=== PATIENT | male | born 1950 | race Asian ===

== ENCOUNTER 2020-04-12 19:04 | Inpatient (IN) | payer MEDICARE, MEDICAID ==
[~2020-04-12] VITALS: Ht 170.2 cm; Wt 55.4 kg
[2020-04-12 19:15] VITALS: BP 150/97
--- NOTE | 2020-04-12 19:15 | NUR ---
ED Nurse Note: Pt moved to Trauma room, endorsed care of pt. Pt BIBA RA 26 from home due to chest pain, on scene pt's BP was 230/110, ASA 324mg was given. Pt is AAOx4, no acute distress noted, Pt is tachycardic 105-108, BP 150/97. Pt's right side is contracted d/t prior CVA.
--- NOTE | 2020-04-12 19:18 | Emergency Room Report ---
History of Present Illness General Chief Complaint: Hypertension Source: Patient Present Illness HPI 69-year-old male with past medical history of hypertension, previous CVA with residual right upper extremity weakness, dyslipidemia, presents by EMS with chief complaint of headache and chest pain. Chest pain was substernal with radiation to the left upper extremity. States he has been compliant with his blood pressure medication at home, however it has not been helping alleviate his extremely high blood pressures. According to EMS, systolic blood pressure prior to arrival was in the 240s. Patient states that the headache he is experiencing is on his frontal forehead and nonradiating. It is similar to previous he has had in the past. Denies thunderclap onset, worst of life, trauma, syncope, vision changes, ataxia. Denies new focal deficit The patient's symptoms were gradual onset, severity was moderate, duration since 1 days. Quality: pressure like Past medical history: Hypertension, CVA with residual right upper extremity weak ness, dyslipidemia Past surgical history: Denies Smoking: Denies Alcohol use: Denies Drug use: Denies Review of systems: CONST: No fevers or chills, No night sweats PULMONARY: No productive cough, No shortness of breath CARDIAC: No chest pain, No palpitations GI: No vomiting, No diarrhea , No melena_or_BRBPR : No dysuria, No hematuria, No discharge NEURO: No new_focal_weakness_or_numbness, No confusion, No vision changes 14 point Review of Systems is otherwise negative except per HPI Physical Exam: GENERAL: Awake_alert_ nontoxic, no acute distress Spo2 98% on RA -normal EYES: Extraocular muscles are intact. Conjunctivae clear. Lids without swelling ENT: External nose and ear normal_in_appearance. Oropharynx clear. Head_atraumatic, Moist_oral_mucosa NECK: No JVD. No meningismus. No thyromegaly. Supple. Trachea midline RESP: Normal respiratory effort. Symmetric rise. No stridor. Clear_to_auscultation_No_rales_No_wheezes CARDIAC: Regular rate and regular rhytm. No_significant pedal edema. ABDOMEN: Soft. Nondistended. Nontender_No_rebound_or_guarding. MSK: Normal muscle tone, without rigidity. Extremities without asymmetric deformity or swelling. SKIN: Warm and dry. No visible cyanosis or pallor NEUROLOGIC: Alert, oriented x3. Motor_and_sensation_grossly_intact except RUE from previous CVA. No truncal ataxia. No slurred speech. Right upper extremity weakness plus 4 out of 5; otherwise strength 5 out of 5 in all other extremities No Nystagmus or abnormal cerebellar signs Psych: Normal mood and affect, normal judgment and insight - COORDINATION OF CARE Case was discussed with: Patient , Patient's Physician Any labs and imaging that were ordered were interpreted as part of the medical decision making: Medical Decision Making/Plan: Differential diagnosis includes acute myocardial infarction, acute coronary syndrome and unstable angina, pulmonary embolism, pneumothorax, pneumonia, and aortic dissection, among others. Patient is currently well appearing with stable vitals. He was administered aspirin 324 prior to arrival as well as nitro spray. New blood pressure is in the 180 systolic. He continues to complain of left-sided chest pain although the intensity has decreased. EKG shows sinus tachycardia with nonspecific ST changes in the inferior leads. LVH. Hyperacute T waves in V2 through V4. No STEMI.. No evidence of STEMI, and initial troponin is negative. Chest xray shows diffuse opacification with possible groundglass opacity versus interstitial edema. No evidence of pneumothorax or significant pleural effusion. Troponin negative x1 Aspirin given. However, given that chest pain is currently resolved, risks likely outweigh benefits of IV heparin at this time, so deferred. The pain is not classic for pericarditis or myocarditis, and the patient has no significant risk factors for a pericardial effusion and has stable vitals signs, unlikely to have tamponade. Pain is not likely to be pulmonary embolism, patient has no significant PE risk factors. The presentation is not consistent with dissection, pain is not severe, radiating to back, or tearing in nature. Has normal bilateral radial and pedal pulses. However given patients presentation and risk factors, patient will be admitted for serial troponins and risk stratification and evaluation for likely stress testing. This patient appears to be a suitable candidate for transfer to telemetry floor at this time with orders from the admitting physician who is aware of the patient's evaluation, ancillary test findings, and current condition, and agrees with treatment and disposition. I spoke with Dr. Alegre from the [facility] group, and reviewed the patients presentation, workup, results, and treatment. They will admit the patient for further care and evaluation, and assume care of the patient at this time. Allergies: Coded Allergies: No Known Allergies (Unverified , 04/12/20) COVID-19 Screening Contact w/high risk pt: No Experienced COVID-19 symptoms?: No COVID-19 Testing performed CONTENT DEVELOPMENT SPECIALIST: No Nursing Documentation-PMH Past Medical History: No History, Except For Hx Cardiac Problems: No - insomnia Hx Hypertension: Yes Hx Cerebrovascular Accident: Yes Physical Exam Vital Signs Date Time Temp Pulse Resp B/P (MAP) Pulse Ox O2 Delivery O2 Flow Rate FiO2 04/12/20 18:56 99.0 112 18 168/103 (124) 94 Room Air Sp02 EP Interpretation: reviewed, normal Medical Decision Making Diagnostic Impression: Primary Impression: Chest pain Additional Impressions: Headache History of CVA (cerebrovascular accident) HTN (hypertension) EKG Diagnostic Results Troponin ordered: Yes When was troponin ordered?: Apr 12, 2020 EKG Time: 19:26 Rate: tachycardiac Rhythm: NSR ST Segments: other - To be changes in the inferior leads ASA given to the pt in ED: Yes - Prior to arrival PA Scribe Text 12-lead EKG (interpreted by me) Time: 1903 Indication: Rhythm analysis Tracing visualized and Interpreted by me. Rhythm: Sinus tachycardia Rate: 104 bpm QTc: 502 Morphology: No_significant_ST_elevations_or_depressions, No STEMI Impression: Sinus tachycardia. LVH. Hyperacute T wave in V2 through V4. Nonspecific inferior lead changes 12-lead EKG (interpreted by me) Time: [id number] Indication: Rhythm analysis Tracing visualized and Interpreted by me. Rhythm: Sinus tachycardia Rate: 104 bpm QTc: 504 Morphology: No_significant_ST_elevations_or_depressions, No STEMI Impression: Sinus tachycardia. LVH. Hyperacute T wave in V2 through V4. Nonspecific inferior lead changes Rhythm Strip Diag. Results Rhythm Strip Time: 19:26 EP Interpretation: yes Rate: 99 Rhythm: NSR, no PVC's, no ectopy Chest X-Ray Diagnostic Results Chest X-Ray Diagnostic Results : PA Scribe Text Chest X-Ray: Views: 1 view(s) Indication: Chest pain Findings: Normal heart size. Mediastinum normal. No infiltrate. Impression: Groundglass opacity versus interstitial edema. Cardiomegaly. Elevated left hemidiaphragm The X-ray(s) were independently viewed and interpreted contemporaneously Electronically signed by me, Janel Bentley, DO Reevaluation Time: 19:27 Last Vital Signs Date Time Temp Pulse Resp B/P (MAP) Pulse Ox O2 Delivery O2 Flow Rate FiO2 04/12/20 18:56 99.0 112 18 168/103 (124) 94 Room Air Status: improved Disposition: ADMITTED INPATIENT Admit Decision Time: 19:27 Condition: Stable Scripts Unable to Obtain Active Prescriptions or Reported Meds Janel Bentley D.O. Apr 12, 2020 19:18
[2020-04-12 19:33] LABS: EOSINOPHILS % (AUTO) 0.5 % (0.0-3.0); HEMATOCRIT 45.2 % (42.0-52.0); HEMOGLOBIN 15.3 G/DL (14.2-18.0); LYMPHOCYTES % (AUTO) 13.9 % (20.0-45.0); MEAN CORPUSCULAR VOLUME 89 FL (80-99); MONOCYTES % (AUTO) 8.8 % (1.0-10.0); NEUTROPHILS % (AUTO) 75.7 % (45.0-75.0); PLATELET COUNT 201 K/UL (150-450); RED BLOOD COUNT 5.07 M/UL (4.70-6.10); RED CELL DISTRIBUTION WIDTH 11.7 % (11.6-14.8); WHITE BLOOD COUNT 11.4 K/UL (4.8-10.8)
--- NOTE | 2020-04-12 19:40 | NUR ---
ED Nurse Note: COVID swab sent to lab
[2020-04-12 19:43] LABS: ANION GAP 11 mmol/L (5-15); BLOOD UREA NITROGEN 19 mg/dL (7-18); CALCIUM 8.5 MG/DL (8.5-10.1); CARBON DIOXIDE 25 MMOL/L (21-32); CHLORIDE 103 MMOL/L (98-107); CREATININE 0.9 MG/DL (0.55-1.30); POTASSIUM 3.5 MMOL/L (3.5-5.1); SODIUM 138 MMOL/L (136-145)
[2020-04-12 19:47] LABS: ALANINE AMINOTRANSFERASE 12 U/L (12-78); ALBUMIN 3.7 G/DL (3.4-5.0); ALBUMIN/GLOBULIN RATIO 1.2 (1.0-2.7); ALKALINE PHOSPHATASE 73 U/L (46-116); ASPARTATE AMINO TRANSFERASE 21 U/L (15-37); BILIRUBIN,TOTAL 0.5 MG/DL (0.2-1.0)
[2020-04-12 19:48] LABS: INR 1.1 (0.9-1.1)
[2020-04-12] MEDS ORDERED: Morphine Sulfate 2mg/ml Inj(IV/IM USE ONLY) IVP PRN (20:00)
--- NOTE | 2020-04-12 20:28 | NUR ---
ED Nurse Note: pt went down to CT via gurney accompanied by CT staff, pt in stable condition.
--- NOTE | 2020-04-12 20:40 | Diagnostic Imaging Report ---
EXAM: CT Head Without Intravenous Contrast CLINICAL HISTORY: H/A TECHNIQUE: Axial computed tomography images of the head/brain without intravenous contrast. CTDI is 53.4 mGy and DLP is 975.1 mGy-cm. One or more of the following dose reduction techniques were used: automated exposure control, adjustment of the mA and/or kV according to patient size, use of iterative reconstruction technique. COMPARISON: No relevant prior studies available. FINDINGS: Brain: Extensive white matter hypoattenuation compatible with chronic ischemic microvascular disease. Chronic appearing lacunar infarcts in the bilateral basal ganglia. No hemorrhage. Ventricles: Unremarkable. No ventriculomegaly. Bones/joints: Unremarkable. No acute fracture. Soft tissues: Unremarkable. Sinuses: Unremarkable as visualized. No acute sinusitis. Mastoid air cells: Unremarkable as visualized. No mastoid effusion. IMPRESSION: Chronic infarcts and white matter changes compatible with chronic ischemic microvascular disease. No acute intracranial process.
[2020-04-12] MEDS ORDERED: Enalaprilat 2.5mg/2ml Inj IV ONE (20:45)
--- NOTE | 2020-04-12 21:01 | NUR ---
ED Nurse Note: report given to JOHN Jay in tele
[2020-04-12 21:08] VITALS: BP 144/82
--- NOTE | 2020-04-12 21:10 | NUR ---
ED Nurse Note: pt transported to Tele floor.
--- NOTE | 2020-04-12 21:15 | NUR ---
NURSE NOTES: Received patient from Angela LOPEZ. Patient was able to ambulate from rne to bed. Yellow gown and special education secretary placed on patient. Vital signs upon arrival as follows: BP 1166/100, Temp 98.2, SPo2 96% HR 111. No c/o Chest pain or dizziness as per patient. Saturating well on Room air. Patient awsnt able to provide much information on history and Medications he take at home but gave his 's number. Will contact and ask for home meds. Bed in lowest position and locked. Call light and bedside table within reach. Will continue plan of care.
--- NOTE | 2020-04-12 21:45 | NUR ---
NURSE NOTES: Dr Laureano called for orders. Verified and carried out. EKG done no rhythm change with ER's EKG. Family called back and gave home medications only amlodipine and triazolam.
[2020-04-12] MEDS ORDERED: Acetaminophen 500mg (ES) tab ORAL PRN (23:15)
[2020-04-12] MEDS ORDERED: HydrALAZINE 25mg tab ORAL PRN (23:15)
[2020-04-13] VITALS (7 sets, daily range): BP systolic 140–175; BP diastolic 86–102
[2020-04-13 05:37] LABS: BASOPHILS % (AUTO) 1.6 % (0.0-2.0); EOSINOPHILS % (AUTO) 0.1 % (0.0-3.0); HEMATOCRIT 45.2 % (42.0-52.0); HEMOGLOBIN 16.2 G/DL (14.2-18.0); LYMPHOCYTES % (AUTO) 8.9 % (20.0-45.0); MEAN CORPUSCULAR VOLUME 83 FL (80-99); MONOCYTES % (AUTO) 6.5 % (1.0-10.0); PLATELET COUNT 205 K/UL (150-450); RED BLOOD COUNT 5.42 M/UL (4.70-6.10); RED CELL DISTRIBUTION WIDTH 10.8 % (11.6-14.8); WHITE BLOOD COUNT 12.7 K/UL (4.8-10.8)
[2020-04-13 05:49] LABS: ANION GAP 10 mmol/L (5-15); BLOOD UREA NITROGEN 13 mg/dL (7-18); CALCIUM 8.1 MG/DL (8.5-10.1); CARBON DIOXIDE 24 MMOL/L (21-32); CHLORIDE 101 MMOL/L (98-107); CREATININE 0.9 MG/DL (0.55-1.30); POTASSIUM 3.3 MMOL/L (3.5-5.1); SODIUM 135 MMOL/L (136-145)
--- NOTE | 2020-04-13 07:23 | NUR ---
NURSE HAND-OFF REPORT: Important Events on Shift:[None] Patient Status: [Stable] Diet: [Regulard] Pending Orders: [] Pending Results/Labs:[] Pending MD notification:[] Latest Vital Signs: Temperature 97.9 , Pulse 109 , B/P 169 /99 , Respiratory Rate 20 , O2 SAT 97 , Room Air, O2 Flow Rate . Vital Sign Comment: [] EKG Rhythm: Sinus Tachycardia Rhythm change?: N MD Notified?: - MD Response: Latest Banks Fall Score: 60 Fall Risk: High Risk Safety Measures: Call light Within Reach, Bed Alarm Zone 1, Side Rails Side Rails x3, Bed position Low and Locked. Fall Precautions: Yellow Socks Yellow Gown Door Sign Patient Fall Education Report given to [Sarah RN].
--- NOTE | 2020-04-13 07:37 | History and Physical ---
History of Present Illness General Date patient seen: Apr 13, 2020 Reason for Hospitalization: chest pain Present Illness HPI 69-year-old [place] male with past medical history of hypertension CVA with residual right-sided weakness and hyperlipidemia presented to the ER by EMS with chief complaint of chest pain and headache. Chest pain is substernal , pressure-like and radiating to the left arm, accompanied by diaphoresis. Patient denies any history of previous IN. He reports compliance with his blood pressure medications at home. He notices that sometimes his blood pressure is very high at home. Per EMS upon their arrival arrival patient systolic blood pressure was in the 240s. Headache is frontal and nonradiating. Denies any vision changes, fall, LOC, or any new focal neurologic deficits. Headache is moderate 6 out of 10 and present for 1 day. Patient denies abdominal pain, nausea, vomiting, diarrhea. Past medical history: Hypertension, CVA with residual right upper extremity weakness, dyslipidemia Past surgical history: Denies Social history: Smoking: Denies Alcohol use: Denies Drug use: Denies History: Denies family history of accelerated heart disease. Allergies: Coded Allergies: No Known Allergies (Unverified , 04/12/20) COVID-19 Screening Contact w/high risk pt: No Recent Travel to affected area: No Experienced COVID-19 symptoms?: No Patient History History Provided By: Patient, Medical Record Healthcare decision maker N Resuscitation status N Advanced Directive on File N Review of Systems Constitutional: Denies: no symptoms, see HPI, chills, sweats, fever, malaise, weakness, other ENT: Reports: see HPI Respiratory: Denies: no symptoms, see HPI, cough, orthopnea, shortness of breath, stridor, wheezing, CABALLERO, sputum, other Cardiovascular: Reports: see HPI, chest pain Gastrointestinal: Denies: no symptoms, see HPI, abdominal pain, constipation, diarrhea, nausea, vomiting, melena, hematemesis, other Genitourinary: Denies: no symptoms, see HPI, discharge, dysuria, frequency, hematuria, pain, retention, incontinence, urgency, vag bleed/dc, other Musculoskeletal: Denies: no symptoms, see HPI, back pain, gout, joint pain, joint swelling, muscle pain, muscle stiffness, other Skin: Denies: no symptoms, see HPI, rash, change in color, change in hair/nails, dryness, lesions, other Psychiatric: Denies: no symptoms, see HPI, prior hx, anxiety, depressed feelings, emotional problems, SI, HI, hallucinations, other Neurological: Reports: see HPI Endocrine: Denies: no symptoms, see HPI, excessive sweating, flushing, intolerance to temperature, increased thirst, increased urine, unexplained weight loss, other Hematologic/Lymphatic: Denies: no symptoms, see HPI, anemia, blood clots, easy bleeding, easy bruising, swollen glands, diathesis, other Physical Exam General Appearance: no apparent distress, alert Lines, tubes and drains: peripheral HEENT: normocephalic, atraumatic, anicteric, mucous membranes moist, PERRL, EOMI Neck: non-tender, normal alignment, supple, normal inspection Respiratory/Chest: chest wall non-tender, lungs clear, normal breath sounds, no respiratory distress, no accessory muscle use Cardiovascular/Chest: normal peripheral pulses, normal rate, regular rhythm, regularly irregular, no gallop/murmur, no JVD Abdomen: normal bowel sounds, non tender, soft, no organomegaly, no mass, abnormal bowel sounds Extremities: normal range of motion, non-tender, normal inspection, no calf tenderness, normal capillary refill, non-pitting, no edema Skin Exam: normal pigmentation Neurologic: chemist internship II-XII grossly normal, oriented x 3, responsive, motor weakness - 3/5 RUE, 4/5 RLE Musculoskeletal: normal muscle bulk Last 24 Hour Vital Signs Date Time Temp Pulse Resp B/P (MAP) Pulse Ox O2 Delivery O2 Flow Rate FiO2 04/13/20 04:00 101 04/13/20 04:00 97.9 109 20 169/99 (122) 97 04/13/20 00:00 111 04/13/20 00:00 97.0 108 20 165/99 (121) 96 04/12/20 22:19 Room Air 04/12/20 21:10 99.0 105 16 144/85 99 Room Air 04/12/20 21:08 144/82 04/12/20 20:49 187/104 04/12/20 19:15 99.0 106 18 150/97 99 Room Air 04/12/20 19:15 106 18 Room Air 04/12/20 18:56 99.0 112 18 168/103 (124) 94 Room Air Intake and Output 04/12/20 04/13/20 19:00 07:00 Intake Total 150 ml Balance 150 ml Intake Oral 100 ml Other 50 ml # Voids 3 Laboratory Tests Test 04/12/20 19:20 04/13/20 05:20 White Blood Count 11.4 K/UL (4.8-10.8) H 12.7 K/UL (4.8-10.8) H Red Blood Count 5.07 M/UL (4.70-6.10) 5.42 M/UL (4.70-6.10) Hemoglobin 15.3 G/DL (14.2-18.0) 16.2 G/DL (14.2-18.0) Hematocrit 45.2 % (42.0-52.0) 45.2 % (42.0-52.0) Mean Corpuscular Volume 89 FL (80-99) 83 FL (80-99) Mean Corpuscular Hemoglobin 30.3 PG (27.0-31.0) 29.8 PG (27.0-31.0) Mean Corpuscular Hemoglobin Concent 33.9 G/DL (32.0-36.0) 35.7 G/DL (32.0-36.0) Red Cell Distribution Width 11.7 % (11.6-14.8) 10.8 % (11.6-14.8) L Platelet Count 201 K/UL (150-450) 205 K/UL (150-450) Mean Platelet Volume 7.1 FL (6.5-10.1) 6.2 FL (6.5-10.1) L Neutrophils (%) (Auto) 75.7 % (45.0-75.0) H 83.0 % (45.0-75.0) H Lymphocytes (%) (Auto) 13.9 % (20.0-45.0) L 8.9 % (20.0-45.0) L Monocytes (%) (Auto) 8.8 % (1.0-10.0) 6.5 % (1.0-10.0) Eosinophils (%) (Auto) 0.5 % (0.0-3.0) 0.1 % (0.0-3.0) Basophils (%) (Auto) 1.0 % (0.0-2.0) 1.6 % (0.0-2.0) Prothrombin Time 11.6 SEC (9.30-11.50) H Prothromb Time International Ratio 1.1 (0.9-1.1) Activated Partial Thromboplast Time 30 SEC (23-33) Sodium Level 138 MMOL/L (136-145) 135 MMOL/L (136-145) L Potassium Level 3.5 MMOL/L (3.5-5.1) 3.3 MMOL/L (3.5-5.1) L Chloride Level 103 MMOL/L (98-107) 101 MMOL/L (98-107) Carbon Dioxide Level 25 MMOL/L (21-32) 24 MMOL/L (21-32) Anion Gap 11 mmol/L (5-15) 10 mmol/L (5-15) Blood Urea Nitrogen 19 mg/dL (7-18) H 13 mg/dL (7-18) Creatinine 0.9 MG/DL (0.55-1.30) 0.9 MG/DL (0.55-1.30) Estimat Glomerular Filtration Rate > 60 mL/min (>60) > 60 mL/min (>60) Glucose Level 110 MG/DL (74-106) H 116 MG/DL (74-106) H Calcium Level 8.5 MG/DL (8.5-10.1) 8.1 MG/DL (8.5-10.1) L Total Bilirubin 0.5 MG/DL (0.2-1.0) Aspartate Amino Transf (AST/SGOT) 21 U/L (15-37) Alanine Aminotransferase (ALT/SGPT) 12 U/L (12-78) Alkaline Phosphatase 73 U/L (46-116) Troponin I 0.019 ng/mL (0.000-0.056) 0.061 ng/mL (0.000-0.056) Total Protein 6.9 G/DL (6.4-8.2) Albumin 3.7 G/DL (3.4-5.0) Globulin 3.2 g/dL Albumin/Globulin Ratio 1.2 (1.0-2.7) Lipase 188 U/L (73-393) Microbiology Date/Time Source Procedure Growth Status 04/12/20 19:34 Nasopharynx SARS-CoV-2 RdRp Gene Assay - Final Complete Height (Feet): 5 Height (Inches): 7.00 Weight (Pounds): 121 Medications Current Medications Medications (Trade) Dose Ordered Sig/Venessa Route PRN Reason Start Time Stop Time Status Last Admin Dose Admin Acetaminophen (Tylenol) 1,000 mg Q8HR PRN ORAL Mild Pain (Pain Scale 1-3) 04/12/20 23:15 05/12/20 23:14 Amlodipine Besylate (Norvasc) 5 mg DAILY ORAL 04/13/20 09:00 05/13/20 08:59 Heparin Sodium (Porcine) (Heparin 5000 units/ml) 5,000 units EVERY 12 HOURS SUBQ 04/13/20 09:00 05/28/20 08:59 Hydralazine HCl (Apresoline) 25 mg Q6HR PRN ORAL SBP >180 04/12/20 23:15 07/11/20 23:14 Assessment/Plan Problem List: (1) Chest pain ICD Codes: R07.9 - Chest pain, unspecified SNOMED: 09004608 (2) HTN (hypertension) ICD Codes: I10 - Essential (primary) hypertension SNOMED: 97755187 (3) History of CVA (cerebrovascular accident) ICD Codes: Z86.73 - Personal history of transient ischemic attack (TIA), and cerebral infarction without residual deficits SNOMED: 699371957 (4) Headache ICD Codes: R51.9 - Headache, unspecified SNOMED: 00036395 Status: stable Assessment/Plan: 69-year-old male with history of hypertension, hyperlipidemia and previous CVA with residual right-sided weakness presented to the hospital with chest pain and headache. #Chest pain rule out ACS #Hypertensive emergency #Hyperlipidemia Place in observation Initiate monitoring BP control. Continue amlodipine. Increase to 10 mg daily Hydralazine as needed for SBP greater than 160 and DBP greater than 100 Continue statin Trend troponin until peaks 2D echocardiogram Cardiology consult #History of CVA with residual right-sided weakness #Headache likely related to hypertensive emergency CT head without any acute abnormality Tylenol as needed Blood pressure control with amlodipine Continue statin #hyperglycemia Check hemoglobin A1c #Hyponatremia #Hypokalemia Replace potassium as needed Monitor BMP I spent 72 minutes on this encounter, 35 minutes spent on counseling and care coordination. Plan of care discussed with RN, patient and consultants. Prem Abraham M.D. Apr 13, 2020 07:37
--- NOTE | 2020-04-13 07:46 | NUR ---
NURSE NOTES: Pt received from Nathaniel LOPEZ. Bed low and locked, sitting up in bed with breakfast tray at bedside. Call light within reach. No complaints of pain or distress
[2020-04-13] MEDS ORDERED: Zolpidem 5mg tab ORAL PRN (08:00)
[2020-04-13] MEDS ORDERED: Heparin 5000 units/ml inj SUBQ SCH (09:00)
--- NOTE | 2020-04-13 09:18 | NUR ---
CASE MANAGEMENT: INITIAL REVIEW 69 YO M BIBA FROM HOME CC: CP AND HIGH BLOOD PRESSURE PMHx: HTN. CVA. SI:CP R/O ACS VS: T 99 HR 112 RR 18 B/P 168/103 SATS 94% ON RA LABS: WBC 11.4 BUN 19 GLU 110 TROPONIN 0.061 IS: EKG Impression:Sinus tachycardia. LVH. Hyperacute Twave in V2 through V4. Nonspecific inferior lead changes CXR: Impression: Groundglass opacity versus interstitial edema. Cardiomegaly. Elevated left hemidiaphragm CT HEAD No acute intracranial process. PATIENT ADMITTED TO TELE 04/12/2020 @ 1932 DCP: HOME PLAN OF CARE: SERIAL TROPONIN 2D ECHO
--- NOTE | 2020-04-13 11:00 | NUR ---
NURSE NOTES: Reassessed BP. Now 167/97. Had an order for additional 5 mg of amlodipine which md had adjusted after i had given 5 this morning. Pt expressed some resistance to taking additional pills after taking 3 large K pills this morning. Used cage clerk phone (ID # [id number] (possibly [phone], she hung up before I could clarify)) to help explain that this is an additional dose of amlodipine to address the high blood pressure that is not going down. Per cage clerk he agrees to take it. Additionally states he feels slightly tired.
--- NOTE | 2020-04-13 12:00 | NUR ---
NURSE NOTES: Used semiconductor bonder phone (ID # [id number]) to explain to pt that his tropnin levels are going up and that the DrKayden has ordered Heparin IV to address this concern. He had no questions and expressed understanding to semiconductor bonder who relayed that to me.
[2020-04-13 12:55] LABS: EOSINOPHILS % (AUTO) 0.1 % (0.0-3.0); HEMATOCRIT 47.7 % (42.0-52.0); HEMOGLOBIN 16.9 G/DL (14.2-18.0); LYMPHOCYTES % (AUTO) 10.2 % (20.0-45.0); MEAN CORPUSCULAR VOLUME 83 FL (80-99); MONOCYTES % (AUTO) 5.2 % (1.0-10.0); NEUTROPHILS % (AUTO) 83.5 % (45.0-75.0); PLATELET COUNT 225 K/UL (150-450); RED BLOOD COUNT 5.72 M/UL (4.70-6.10); RED CELL DISTRIBUTION WIDTH 11.1 % (11.6-14.8); WHITE BLOOD COUNT 12.9 K/UL (4.8-10.8)
--- NOTE | 2020-04-13 13:24 | Cardiac Electrophysiology PN ---
Subjective Subjective [id number] Objective Last 24 Hour Vital Signs Date Time Temp Pulse Resp B/P (MAP) Pulse Ox O2 Delivery O2 Flow Rate FiO2 04/13/20 12:00 98.2 105 18 167/97 (120) 97 04/13/20 12:00 109 04/13/20 11:24 105 167/97 04/13/20 09:00 Room Air 04/13/20 08:43 104 163/102 04/13/20 08:00 98.6 104 20 163/102 (122) 97 04/13/20 08:00 103 04/13/20 04:00 101 04/13/20 04:00 97.9 109 20 169/99 (122) 97 04/13/20 00:00 111 04/13/20 00:00 97.0 108 20 165/99 (121) 96 04/12/20 22:19 Room Air 04/12/20 21:10 99.0 105 16 144/85 99 Room Air 04/12/20 21:08 144/82 04/12/20 20:49 187/104 04/12/20 19:15 99.0 106 18 150/97 99 Room Air 04/12/20 19:15 106 18 Room Air 04/12/20 18:56 99.0 112 18 168/103 (124) 94 Room Air Intake and Output 04/12/20 04/13/20 19:00 07:00 Intake Total 150 ml Balance 150 ml Intake Oral 100 ml Other 50 ml # Voids 3 Laboratory Tests Test 04/12/20 19:20 04/13/20 05:00 04/13/20 05:20 04/13/20 10:00 White Blood Count 11.4 K/UL (4.8-10.8) H 12.7 K/UL (4.8-10.8) H Red Blood Count 5.07 M/UL (4.70-6.10) 5.42 M/UL (4.70-6.10) Hemoglobin 15.3 G/DL (14.2-18.0) 16.2 G/DL (14.2-18.0) Hematocrit 45.2 % (42.0-52.0) 45.2 % (42.0-52.0) Mean Corpuscular Volume 89 FL (80-99) 83 FL (80-99) Mean Corpuscular Hemoglobin 30.3 PG (27.0-31.0) 29.8 PG (27.0-31.0) Mean Corpuscular Hemoglobin Concent 33.9 G/DL (32.0-36.0) 35.7 G/DL (32.0-36.0) Red Cell Distribution Width 11.7 % (11.6-14.8) 10.8 % (11.6-14.8) L Platelet Count 201 K/UL (150-450) 205 K/UL (150-450) Mean Platelet Volume 7.1 FL (6.5-10.1) 6.2 FL (6.5-10.1) L Neutrophils (%) (Auto) 75.7 % (45.0-75.0) H 83.0 % (45.0-75.0) H Lymphocytes (%) (Auto) 13.9 % (20.0-45.0) L 8.9 % (20.0-45.0) L Monocytes (%) (Auto) 8.8 % (1.0-10.0) 6.5 % (1.0-10.0) Eosinophils (%) (Auto) 0.5 % (0.0-3.0) 0.1 % (0.0-3.0) Basophils (%) (Auto) 1.0 % (0.0-2.0) 1.6 % (0.0-2.0) Prothrombin Time 11.6 SEC (9.30-11.50) H Prothromb Time International Ratio 1.1 (0.9-1.1) Activated Partial Thromboplast Time 30 SEC (23-33) Sodium Level 138 MMOL/L (136-145) 135 MMOL/L (136-145) L Potassium Level 3.5 MMOL/L (3.5-5.1) 3.3 MMOL/L (3.5-5.1) L Chloride Level 103 MMOL/L (98-107) 101 MMOL/L (98-107) Carbon Dioxide Level 25 MMOL/L (21-32) 24 MMOL/L (21-32) Anion Gap 11 mmol/L (5-15) 10 mmol/L (5-15) Blood Urea Nitrogen 19 mg/dL (7-18) H 13 mg/dL (7-18) Creatinine 0.9 MG/DL (0.55-1.30) 0.9 MG/DL (0.55-1.30) Estimat Glomerular Filtration Rate > 60 mL/min (>60) > 60 mL/min (>60) Glucose Level 110 MG/DL (74-106) H 116 MG/DL (74-106) H Calcium Level 8.5 MG/DL (8.5-10.1) 8.1 MG/DL (8.5-10.1) L Total Bilirubin 0.5 MG/DL (0.2-1.0) Aspartate Amino Transf (AST/SGOT) 21 U/L (15-37) Alanine Aminotransferase (ALT/SGPT) 12 U/L (12-78) Alkaline Phosphatase 73 U/L (46-116) Troponin I 0.019 ng/mL (0.000-0.056) 0.061 ng/mL (0.000-0.056) 0.132 ng/mL (0.000-0.056) Total Protein 6.9 G/DL (6.4-8.2) Albumin 3.7 G/DL (3.4-5.0) Globulin 3.2 g/dL Albumin/Globulin Ratio 1.2 (1.0-2.7) Lipase 188 U/L (73-393) Hemoglobin A1c 5.3 % (4.3-6.0) Test 04/13/20 12:15 White Blood Count 12.9 K/UL (4.8-10.8) H Red Blood Count 5.72 M/UL (4.70-6.10) Hemoglobin 16.9 G/DL (14.2-18.0) Hematocrit 47.7 % (42.0-52.0) Mean Corpuscular Volume 83 FL (80-99) Mean Corpuscular Hemoglobin 29.5 PG (27.0-31.0) Mean Corpuscular Hemoglobin Concent 35.4 G/DL (32.0-36.0) Red Cell Distribution Width 11.1 % (11.6-14.8) L Platelet Count 225 K/UL (150-450) Mean Platelet Volume 6.6 FL (6.5-10.1) Neutrophils (%) (Auto) 83.5 % (45.0-75.0) H Lymphocytes (%) (Auto) 10.2 % (20.0-45.0) L Monocytes (%) (Auto) 5.2 % (1.0-10.0) Eosinophils (%) (Auto) 0.1 % (0.0-3.0) Basophils (%) (Auto) 1.0 % (0.0-2.0) Activated Partial Thromboplast Time 34 SEC (23-33) H Microbiology Date/Time Source Procedure Growth Status 04/12/20 19:34 Nasopharynx SARS-CoV-2 RdRp Gene Assay - Final Complete Tyler Sanchez MD Apr 13, 2020 13:24
[2020-04-13] MEDS ORDERED: Heparin 5000 units/ml inj IV SCH (13:30)
[2020-04-13] MEDS: Heparin 25,000u/D5W 500ml 500 ML IV SCH (14:01)
--- NOTE | 2020-04-13 15:00 | Consultation ---
DATE OF CONSULTATION: 04/13/2020 CARDIOLOGY CONSULTATION CONSULTING PHYSICIAN: Tyler Sanchez MD. REFERRING PHYSICIAN: Ca Bynum MD. REASON FOR CONSULTATION: Chest pain. HISTORY OF PRESENT ILLNESS: The patient is a 69-year-old Faroese male with history of hypertension, CVA with right-sided weakness, and hyperlipidemia, presented to the emergency room complaining of chest pain and headache. The pain was pressure-like with radiation to the left arm and had diaphoresis as well. The patient denies any prior myocardial infarction, coronary artery disease, or prior stent placement. His blood pressure in the ER was in 240 range and had frontal headache. His EKG was suggestive of inferolateral ischemia. Cardiology consultation was requested for further evaluation as the troponins were also elevated. REVIEW OF SYSTEMS: Negative other than what was mentioned in history of present illness. PAST MEDICAL HISTORY: As mentioned above. FAMILY HISTORY: Noncontributory. SOCIAL HISTORY: He lives at home. Does not smoke or do drugs. PHYSICAL EXAMINATION: VITAL SIGNS: Show blood pressure of 167/97, pulse is 105, respirations 18, and temperature 98.2. HEAD AND NECK: Showed no JVD. LUNGS: Clear. CARDIOVASCULAR: Shows regular S1 and S2 with no gallop or murmur. ABDOMEN: Soft. EXTREMITIES: No pitting edema. LABORATORY AND DIAGNOSTIC DATA: Labs show white count of 13, hemoglobin of 16.9, hematocrit of 47, and platelet count of 225,000. Sodium 135, potassium 3.3, BUN of 13, creatinine 0.9. Troponin initially was negative and then 0.06 and then 0.132. His EKG shows sinus tachycardia with left atrial enlargement and inferolateral T-wave abnormalities suggestive for ischemia. ASSESSMENT AND PLAN: 1. Non-ST elevation myocardial infarction with chest pain, inferolateral ST depression, as well as elevated troponin. The patient currently does not have any chest pain. His echocardiogram showed ejection fraction of 60%. We will continue the patient on heparin drip. I will add aspirin, metoprolol, and statin to his medical regimen. The patient will need cardiac catheterization for further evaluation of his coronaries, I will try to make the transfer arrangement. 2. Accelerated hypertension. The patient is on amlodipine 10 mg daily and p.r.n. hydralazine, and I will add metoprolol 50 mg twice a day to his medical regimen. 3. Hyperlipidemia. 4. 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 Thank you very much, Dr. Abraham, for allowing me to participate in the care of this patient. Please do not hesitate to contact me for any questions regarding my evaluation. Tyler Sanchez M.D. DR: CAS JOB#: [id number] CC:
--- NOTE | 2020-04-13 16:38 | Diagnostic Imaging Report ---
Indication: Chest pain Technique: One view of the chest Comparison: none Findings: There is elevation left hemidiaphragm. There is left basilar atelectasis. Central interstitial prominence is probably on the basis of senescent changes. Impression: No definite acute process
--- NOTE | 2020-04-13 17:04 | NUR ---
*-*DISCHARGE PLANNING*-* CLINICALS FAXED TO: [facility] P: [phone] F: [phone]
--- NOTE | 2020-04-13 17:24 | NUR ---
*-*DISCHARGE PLANNING*-* CLINICALS FAXED TO: [facility] P: [phone] S/W SHA, WILL CALL BACK WITH ROOM#
[2020-04-13] MEDS ORDERED: TRIAZOLAM0.125 MG PO (17:26)
[2020-04-13] MEDS ORDERED: AMLODIPINE BESYL5 MG ORAL (17:26)
[2020-04-13] MEDS ORDERED: THEANINE PO (17:26)
[2020-04-13] MEDS ORDERED: MELATONIN3 MG ORAL (17:26)
[2020-04-13] MEDS ORDERED: BENAZEPRIL HCL40 MG ORAL (17:26)
--- NOTE | 2020-04-13 19:13 | NUR ---
NURSE HAND-OFF REPORT: Important Events on Shift:[pt troponin trending up. last one 0.132. Pt started on heparin. pt will be transferred to [facility] for cardiac cath] Patient Status: [] Diet: [] Pending Orders: [] Pending Results/Labs:[ptt/troponin] Pending MD notification:[] Latest Vital Signs: Temperature 97.8 , Pulse 100 , B/P 155 /92 , Respiratory Rate 18 , O2 SAT 97 , Room Air, O2 Flow Rate . Vital Sign Comment: [bp slowly trending down] EKG Rhythm: Sinus Rhythm Rhythm change?: Y MD Notified?: N - MD Response: Latest Banks Fall Score: 60 Fall Risk: High Risk Safety Measures: Call light Within Reach, Bed Alarm Zone 1, Side Rails Side Rails x2, Bed position Low and Locked. Fall Precautions: Yellow Socks Patient Fall Education Report given to [Nathaniel LOPEZ].
--- NOTE | 2020-04-13 19:27 | NUR ---
NURSE NOTES: Patient received from Ani RN. Patient in stable condition. Alert and oriented x 4. On room air saturating well. IV site patent and intact on Left AC 20G running Heparin Drip @ 12units/kg or 13.2mls/hr. No c/o chest pain or SOB. Bed in lowest position and locked. Call light and bedside table within reach. Will continue plan of care.
--- NOTE | 2020-04-13 20:08 | NUR ---
NURSE NOTES: Pharmacy called for Patient's heparin drip. PTT at therapeutic level 83 continue Heparin drip as ordered at 12units/kg at 13.2mls/hr. Timed PTT order placed at 4am.
[2020-04-13] MEDS: Metoprolol Tartrate 50mg tab ORAL SCH (20:15)
[2020-04-13] MEDS ORDERED: Atorvastatin 80mg tab ORAL SCH (21:00)
--- NOTE | 2020-04-13 21:00 | NUR ---
NURSE NOTES: Tropoin results came back left message for Dr. Bynum and Dr. Sanchez
[2020-04-14 03:52] VITALS: BP 135/82
--- NOTE | 2020-04-14 07:03 | NUR ---
NURSE NOTES: Pt received from Nathaniel LOPEZ. Bed low and locked, sitting up in bed eating breakfast tray at bedside. Call light within reach. No complaints of pain or distress. Heparin drip running at left ac at 13.2 ml/hr.
--- NOTE | 2020-04-14 07:28 | NUR ---
NURSE HAND-OFF REPORT: Important Events on Shift:[Heparin Drip @ 12u/kg] Patient Status: [Stable] Diet: [Regular] Pending Orders: [] Pending Results/Labs:[] Pending MD notification:[] Latest Vital Signs: Temperature 97.5 , Pulse 75 , B/P 135 /82 , Respiratory Rate 20 , O2 SAT 96 , Room Air, O2 Flow Rate . Vital Sign Comment: [] EKG Rhythm: Sinus Rhythm Rhythm change?: N MD Notified?: N - MD Response: Latest Banks Fall Score: 60 Fall Risk: High Risk Safety Measures: Call light Within Reach, Bed Alarm Zone 1, Side Rails Side Rails x2, Bed position Low and Locked. Fall Precautions: Yellow Socks Patient Fall Education Report given to [Sarah RN].
[2020-04-14 08:00] VITALS: BP 144/83
[2020-04-14] MEDS ORDERED: Aspirin EC 81mg tab ORAL SCH (09:00)
--- NOTE | 2020-04-14 09:00 | NUR ---
NURSE NOTES: Used bar manager (ID # [id number]) to let pt know about order to transfer to [facility]. Let him know that we will provide transport. Let him know that I will call again with set up inspector to let him know why he is being transferred.
--- NOTE | 2020-04-14 09:19 | History and Physical ---
History of Present Illness General Date patient seen: Apr 14, 2020 Reason for Hospitalization: Hypertension Present Illness HPI 69-year-old Sinhala male with past medical history of hypertension CVA with residual right-sided weakness and hyperlipidemia presented to the ER by EMS with chief complaint of chest pain and headache. Chest pain is substernal , pressure-like and radiating to the left arm, accompanied by diaphoresis. Patient denies any history of previous MO. He reports compliance with his blood pressure medications at home. He notices that sometimes his blood pressure is very high at home. Per EMS upon their arrival arrival patient systolic blood pressure was in the 240s. Headache is frontal and nonradiating. Denies any vision changes, fall, LOC, or any new focal neurologic deficits. Headache is moderate 6 out of 10 and present for 1 day. Patient denies abdominal pain, nausea, vomiting, diarrhea. Patient was placed on obs to rule out ACS. His troponin was elevated and continues to trend up. His EKG showed inferolateral ST depressions. He was started on Heparin drip, continued ASA and atorvastatin. Started on metoprolol. Echo with EF 60%. Seen in consultation by cardiology. Awaiting transfer to higher level of care ([facility]) for cardiac cath. He was therefore admitted. This morning he is ambulating. He is chest pain free. Allergies: Coded Allergies: No Known Allergies (Unverified , 04/12/20) COVID-19 Screening Contact w/high risk pt: No Recent Travel to affected area: No Experienced COVID-19 symptoms?: No Medication History Scheduled Amlodipine Besylate* (Amlodipine Besylate*), 5 MG ORAL DAILY, (Reported) Benazepril Hcl* (Benazepril Hcl*), 40 MG ORAL DAILY, (Reported) Triazolam* (Halcion*), 0.125 MG PO QHS PRN SLEEP, (Reported) Scheduled PRN Melatonin (Melatonin), 3 MG ORAL BEDTIME PRN for Insomnia, (Reported) [L-Theanine Cap], 1 CAP PO BEDTIME PRN for INSOMNIA, (Reported) Patient History Healthcare decision maker N Resuscitation status Advanced Directive on File Review of Systems Constitutional: Denies: no symptoms, see HPI, chills, sweats, fever, malaise, weakness, other Eye: Denies: no symptoms, see HPI, eye pain, blurred vision, tearing, double vision, nose pain, nose congestion, acuity changes, discharge, other ENT: Denies: no symptoms, see HPI, ear pain, ear discharge, nose pain, nose congestion, throat pain, throat swelling, mouth pain, hearing loss, nasal discharge, other Respiratory: Denies: no symptoms, see HPI, cough, orthopnea, shortness of breath, stridor, wheezing, CABALLERO, sputum, other Cardiovascular: Denies: no symptoms, see HPI, chest pain, edema, palpitations, syncope, PND, other Gastrointestinal: Denies: no symptoms, see HPI, abdominal pain, constipation, diarrhea, nausea, vomiting, melena, hematemesis, other Genitourinary: Denies: no symptoms, see HPI, discharge, dysuria, frequency, hematuria, pain, retention, incontinence, urgency, vag bleed/dc, other Musculoskeletal: Denies: no symptoms, see HPI, back pain, gout, joint pain, joint swelling, muscle pain, muscle stiffness, other Skin: Denies: no symptoms, see HPI, rash, change in color, change in hair /nails, dryness, lesions, other Psychiatric: Denies: no symptoms, see HPI, prior hx, anxiety, depressed fe elings, emotional problems, SI, HI, hallucinations, other Neurological: Reports: focal weakness Endocrine: Denies: no symptoms, see HPI, excessive sweating, flushing, intolerance to temperature, increased thirst, increased urine, unexplained weight loss, other Hematologic/Lymphatic: Denies: no symptoms, see HPI, anemia, blood clots, easy bleeding, easy bruising, swollen glands, diathesis, other Physical Exam Physical Exam Narrative General Appearance: no apparent distress, alert Lines, tubes and drains: peripheral HEENT: normocephalic, atraumatic, anicteric, mucous membranes moist, PERRL, EOMI Neck: non-tender, normal alignment, supple, normal inspection Respiratory/Chest: chest wall non-tender, lungs clear, normal breath sounds, no respiratory distress, no accessory muscle use Cardiovascular/Chest: normal peripheral pulses, normal rate, regular rhythm, regularly irregular, no gallop/murmur, no JVD Abdomen: normal bowel sounds, non tender, soft, no organomegaly, no mass, abnormal bowel sounds Extremities: normal range of motion, non-tender, normal inspection, no calf tenderness, normal capillary refill, non-pitting, no edema Skin Exam: normal pigmentation 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: manager 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 normal, oriented x 3, responsive, motor weakness - 3/5 RUE, 4/5 RLE Musculoskeletal: normal muscle bulk Last 24 Hour Vital Signs Date Time Temp Pulse Resp B/P (MAP) Pulse Ox O2 Delivery O2 Flow Rate FiO2 04/14/20 08:00 86 04/14/20 08:00 96.9 78 20 144/83 (103) 97 04/14/20 04:00 75 04/14/20 03:52 97.5 73 20 135/82 (99) 96 04/14/20 00:00 81 04/13/20 23:55 97.9 82 19 140/86 (104) 97 04/13/20 21:00 Room Air 04/13/20 20:15 102 175/100 04/13/20 20:00 97 04/13/20 20:00 97.7 102 18 175/100 (125) 97 04/13/20 16:00 100 04/13/20 16:00 97.8 106 18 155/92 (113) 97 04/13/20 12:00 98.2 105 18 167/97 (120) 97 04/13/20 12:00 109 04/13/20 11:24 105 167/97 Intake and Output 04/13/20 04/14/20 19:00 07:00 Intake Total 102.8 ml 145.2 ml Output Total 250 ml Balance -147.2 ml 145.2 ml IV Total 52.8 ml 145.2 ml Other 50 ml Output Urine Total 250 ml # Voids 3 4 Laboratory Tests Test 04/13/20 10:00 04/13/20 12:15 04/13/20 19:20 04/14/20 04:00 Troponin I 0.132 ng/mL (0.000-0.056) 0.161 ng/mL (0.000-0.056) White Blood Count 12.9 K/UL (4.8-10.8) H Red Blood Count 5.72 M/UL (4.70-6.10) Hemoglobin 16.9 G/DL (14.2-18.0) Hematocrit 47.7 % (42.0-52.0) Mean Corpuscular Volume 83 FL (80-99) Mean Corpuscular Hemoglobin 29.5 PG (27.0-31.0) Mean Corpuscular Hemoglobin Concent 35.4 G/DL (32.0-36.0) Red Cell Distribution Width 11.1 % (11.6-14.8) L Platelet Count 225 K/UL (150-450) Mean Platelet Volume 6.6 FL (6.5-10.1) Neutrophils (%) (Auto) 83.5 % (45.0-75.0) H Lymphocytes (%) (Auto) 10.2 % (20.0-45.0) L Monocytes (%) (Auto) 5.2 % (1.0-10.0) Eosinophils (%) (Auto) 0.1 % (0.0-3.0) Basophils (%) (Auto) 1.0 % (0.0-2.0) Activated Partial Thromboplast Time 34 SEC (23-33) H 83 SEC (23-33) H 67 SEC (23-33) H Height (Feet): 5 Height (Inches): 7.00 Weight (Pounds): 121 Medications Current Medications Medications (Trade) Dose Ordered Sig/Venessa Route PRN Reason Start Time Stop Time Status Last Admin Dose Admin Acetaminophen (Tylenol) 1,000 mg Q8HR PRN ORAL Mild Pain (Pain Scale 1-3) 04/12/20 23:15 05/12/20 23:14 Amlodipine Besylate (Norvasc) 10 mg DAILY ORAL 04/14/20 09:00 05/14/20 08:59 Aspirin (Ecotrin) 81 mg DAILY ORAL 04/14/20 09:00 05/29/20 08:59 Atorvastatin Calcium (Lipitor) 80 mg BEDTIME ORAL 04/13/20 21:00 07/12/20 20:59 04/13/20 20:15 Heparin Sodium/ Dextrose 500 ml @ 13.2 mls/hr ADJUST PER PROTOCOL IV 04/13/20 13:30 05/13/20 13:29 04/13/20 14:01 Hydralazine HCl (Apresoline) 25 mg Q6HR PRN ORAL SBP >180 04/12/20 23:15 07/11/20 23:14 Metoprolol Tartrate (Lopressor) 50 mg Q12HR ORAL 04/13/20 21:00 07/12/20 20:59 10/16/20 20:15 Zolpidem Tartrate (Ambien) 5 mg HSPRN PRN ORAL Insomnia 04/13/20 08:00 04/20/20 07:59 04/13/20 21:00 Assessment/Plan Problem List: (1) Chest pain ICD Codes: R07.9 - Chest pain, unspecified SNOMED: 40066366 (2) HTN (hypertension) ICD Codes: I10 - Essential (primary) hypertension SNOMED: 55663590 (3) History of CVA (cerebrovascular accident) ICD Codes: Z86.73 - Personal history of transient ischemic attack (TIA), and cerebral infarction without residual deficits SNOMED: 225625823 (4) Headache ICD Codes: R51.9 - Headache, unspecified SNOMED: 12999216 Assessment/Plan: 69-year-old male with history of hypertension, hyperlipidemia and previous CVA with residual right-sided weakness presented to the hospital with chest pain and headache. #chest pain #NSTEMI #Hypertensive emergency #Hyperlipidemia Admit to telemetry Initiate monitoring BP control. Continue amlodipine. Increase to 10 mg daily Hydralazine as needed for SBP greater than 160 and DBP greater than 100 Continue Atorvastatin, ASA, metoprolol Heparin drip Trend troponin until peaks 2D echocardiogram--. EF 60% Cardiology consult appreciated Awaiting tranfer to [facility] for cardiac cath. #History of CVA with residual right-sided weakness #Headache likely related to hypertensive emergency CT head without any acute abnormality Tylenol as needed Blood pressure control with amlodipine Continue statin and ASA #hyperglycemia Check hemoglobin A1c--> 5.3 #Hyponatremia #Hypokalemia Replace potassium as needed Monitor BMP I spent 72 minutes on this encounter, 35 minutes spent on counseling and care coordination. Plan of care discussed with RN, patient and consultants. Prem Abraham M.D. Apr 14, 2020 09:19
[2020-04-14] MEDS: Metoprolol Tartrate 50mg tab ORAL SCH (09:24)
[2020-04-14 10:19] LABS: ANION GAP 7 mmol/L (5-15); BLOOD UREA NITROGEN 29 mg/dL (7-18); CALCIUM 8.8 MG/DL (8.5-10.1); CARBON DIOXIDE 25 MMOL/L (21-32); CHLORIDE 100 MMOL/L (98-107); CREATININE 1.1 MG/DL (0.55-1.30); POTASSIUM 4.1 MMOL/L (3.5-5.1); SODIUM 132 MMOL/L (136-145)
--- NOTE | 2020-04-14 11:52 | NUR ---
*-*DISCHARGE PLANNING*-* CLINICALS FAXED TO: [facility] P: [phone] S/W BRYANT, WILL CALL BACK IF ROOM BECOMES AVAILABLE.
[2020-04-14 11:59] VITALS: BP 137/84
--- NOTE | 2020-04-14 13:24 | NUR ---
*-*DISCHARGE PLANNED*-* PATIENT HAS BEEN ACCEPT [facility] P: [phone] FOR NURSE TO NURSE REPORT ROOM# [id number] [facility] TRANSPORTATION SET FOR 3:30PM/1530 S/W [place] [id number].
[2020-04-14] MEDS: Heparin 25,000u/D5W 500ml 500 ML IV SCH (13:30)
[2020-04-14] MEDS ORDERED: ASPIRIN EC81 MG ORAL (13:36)
[2020-04-14] MEDS ORDERED: METOPROLOL TART50 MG ORAL (13:36)
[2020-04-14] MEDS ORDERED: ACETAMINOPHEN500 MG ORAL (13:36)
[2020-04-14] MEDS ORDERED: NORVASC10 MG ORAL (13:36)
[2020-04-14] MEDS ORDERED: LIPITOR80 MG ORAL (13:36)
--- NOTE | 2020-04-14 13:36 | NUR ---
NURSE NOTES: Notified Dr. Sanchez about troponin trending down and that pt will be moved to [facility] later today.
--- NOTE | 2020-04-14 13:39 | Discharge Summary ---
Discharge Summary Hospital Course Date of Admission Apr 12, 2020 at 19:32 Date of Discharge mar, Admitting Diagnosis CP R/O ACS, HTN EMERGENCY HPI Delmar Summers is a 69 year old male who was admitted on Apr 12, 2020 at 19:32 for Chest Pain Rule Out Acute Coronary Syndrome. Consultations Cardiology: Dr. Machuca Procedures [facility] Course 69-year-old Georgian male with past medical history of hypertension CVA with residual right-sided weakness and hyperlipidemia presented to the ER by EMS with chief complaint of chest pain and headache. Chest pain is substernal , pressure-like and radiating to the left arm, accompanied by diaphoresis. Patient denies any history of previous DE. He reports compliance with his blood pressure medications at home. He notices that sometimes his blood pressure is very high at home. Per EMS upon their arrival arrival patient systolic blood pressure was in the 240s. Headache is frontal and nonradiating. Denies any vision changes, fall, LOC, or any new focal neurologic deficits. Headache is moderate 6 out of 10 and present for 1 day. Patient denies abdominal pain, nausea, vomiting, diarrhea. Patient was placed on obs to rule out ACS. His troponin was elevated and continues to trend up. His EKG showed inferolateral ST depressions. He was started on Heparin drip, continued ASA and atorvastatin. Started on metoprolol. Echo with EF 60%. Seen in consultation by cardiology. Awaiting transfer to higher level of care ([facility]) for cardiac cath. He was therefore admitted. This morning he is ambulating. He is chest pain free. Exam on the day of discharge: General Appearance: no apparent distress, alert Lines, tubes and drains: peripheral HEENT: normocephalic, atraumatic, anicteric, mucous membranes moist, PERRL, EOMI Neck: non-tender, normal alignment, supple, normal inspection Respiratory/Chest: chest wall non-tender, lungs clear, normal breath sounds, no respiratory distress, no accessory muscle use Cardiovascular/Chest: normal peripheral pulses, normal rate, regular rhythm, regularly irregular, no gallop/murmur, no JVD Abdomen: normal bowel sounds, non tender, soft, no organomegaly, no mass, abnormal bowel sounds Extremities: normal range of motion, non-tender, normal inspection, no calf tenderness, normal capillary refill, non-pitting, no edema Skin Exam: normal pigmentation 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, oriented x 3, responsive, motor weakness - 3/5 RUE, 4/5 RLE Musculoskeletal: normal muscle bulk Discharge diagnosis: #chest pain #NSTEMI #Hypertensive emergency #Hyperlipidemia #History of CVA with residual right-sided weakness #[id number]--> 5.3 #Hyponatremia #Hypokalemia Discharge Medications New Medications: Acetaminophen* (Tylenol Extra Strength*) 500 Mg Tablet 1000 MG ORAL Q8HR PRN for 10 Days, TAB Amlodipine Besylate (Norvasc) 10 Mg Tablet 10 MG ORAL DAILY for 10 Days, TAB Aspirin Ec* (Aspirin Ec*) 81 Mg Tablet.dr 81 MG ORAL DAILY for 10 Days, TAB Atorvastatin (Lipitor) 80 Mg Tablet 80 MG ORAL BEDTIME for 10 Days, TAB Metoprolol Tartrate* (Metoprolol Tartrate*) 50 Mg Tablet 50 MG ORAL Q12HR for 10 Days, TAB Continued Medications: Benazepril Hcl* (Benazepril Hcl*) 40 Mg Tablet 40 MG ORAL DAILY for HTN, TAB [L-Theanine Cap] () 1 CAP PO BEDTIME PRN for INSOMNIA Melatonin (Melatonin) 3 Mg Tablet 3 MG ORAL BEDTIME PRN for Insomnia, TAB Triazolam* (Halcion*) 0.125 Mg Tablet 0.125 MG PO QHS PRN SLEEP for INSOMNIA, TAB Discontinued Medications: Amlodipine Besylate* (Amlodipine Besylate*) 5 Mg Tablet 5 MG ORAL DAILY for Hypertension, TAB Discharge Condition Upon Discharge: stable Discharge Vital Signs Last Vital Signs Date Time Temp Pulse Resp B/P (MAP) Pulse Ox O2 Delivery O2 Flow Rate FiO2 04/14/20 12:00 72 04/14/20 11:59 97.9 18 137/84 (101) 98 04/14/20 09:00 Room Air Discharge Disposition Patient was discharged to [facility] Discharge Diagnoses: (1) NSTEMI (non-ST elevated myocardial infarction) (2) Hypertensive emergency (3) History of CVA (cerebrovascular accident) (4) HTN (hypertension) (5) Chest pain (6) Headache Prem Abraham M.D. Apr 14, 2020 13:39
--- NOTE | 2020-04-14 14:00 | NUR ---
NURSE NOTES: Per Dr. Abraham, send pt with heparin drip.
--- NOTE | 2020-04-14 14:51 | NUR ---
NURSE NOTES: Report given to Carla LOPEZ ([phone]) at [facility].
--- NOTE | 2020-04-14 16:00 | NUR ---
NURSE NOTES: Report given to lifeline Gayle LOPEZ here with 3 city planning engineer. Wristband removed. Pt sent on heparin 13.2ml/hr per Dr. Abraham. stable, alert and no complaints of pain. Tele box removed. Discharge paperwork including belongings list signed for. Dr. Sanchez at bedside explained that pt is going to [facility] for Cardiac catheter.
--- NOTE | 2020-04-14 16:19 | Cardiac Electrophysiology PN ---
Assessment/Plan Assessment/Plan 1. Non-ST elevation myocardial infarction with chest pain, inferolateral ST depression, as well as elevated troponin. The patient currently does not have any chest pain. His echocardiogram showed ejection fraction of 60%. We will continue the patient on heparin drip, aspirin, metoprolol, and statin to his medical regimen. The patient will need cardiac catheterization and will be transferred to [facility] today 2. Accelerated hypertension. The patient is on amlodipine 10 mg daily and p.r.n. hydralazine, metoprolol 50 mg twice a day 3. Hyperlipidemia. 4. 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 AZAM RN Subjective Subjective No CP today. Is being transferred to [facility] for cardiac cath Objective Last 24 Hour Vital Signs Date Time Temp Pulse Resp B/P (MAP) Pulse Ox O2 Delivery O2 Flow Rate FiO2 04/14/20 16:00 83 04/14/20 12:00 72 04/14/20 11:59 97.9 70 18 137/84 (101) 98 04/14/20 09:24 86 144/83 04/14/20 09:24 86 144/83 04/14/20 09:00 Room Air 04/14/20 08:00 86 04/14/20 08:00 96.9 78 20 144/83 (103) 97 04/14/20 04:00 75 04/14/20 03:52 97.5 73 20 135/82 (99) 96 04/14/20 00:00 81 04/13/20 23:55 97.9 82 19 140/86 (104) 97 04/13/20 21:00 Room Air 04/13/20 20:15 102 175/100 04/13/20 20:00 97 04/13/20 20:00 97.7 102 18 175/100 (125) 97 Intake and Output 04/13/20 04/14/20 19:00 07:00 Intake Total 102.8 ml 145.2 ml Output Total 250 ml Balance -147.2 ml 145.2 ml IV Total 52.8 ml 145.2 ml Other 50 ml Output Urine Total 250 ml # Voids 3 4 Laboratory Tests Test 04/13/20 19:20 04/14/20 04:00 04/14/20 09:45 Activated Partial Thromboplast Time 83 SEC (23-33) H 67 SEC (23-33) H Troponin I 0.161 ng/mL (0.000-0.056) 0.137 ng/mL (0.000-0.056) Sodium Level 132 MMOL/L (136-145) L Potassium Level 4.1 MMOL/L (3.5-5.1) Chloride Level 100 MMOL/L (98-107) Carbon Dioxide Level 25 MMOL/L (21-32) Anion Gap 7 mmol/L (5-15) Blood Urea Nitrogen 29 mg/dL (7-18) H Creatinine 1.1 MG/DL (0.55-1.30) Estimat Glomerular Filtration Rate > 60 mL/min (>60) Glucose Level 124 MG/DL (74-106) H Calcium Level 8.8 MG/DL (8.5-10.1) Microbiology Date/Time Source Procedure Growth Status 04/12/20 19:34 Nasopharynx SARS-CoV-2 RdRp Gene Assay - Final Complete Objective HEAD AND NECK: Showed no JVD. LUNGS: Clear. CARDIOVASCULAR: Shows regular S1 and S2 with no gallop or murmur. ABDOMEN: Soft. EXTREMITIES: No pitting edema. Tyler Sanchez MD Apr 14, 2020 16:19
--- NOTE | 2020-04-14 20:02 | Cardiology Report ---
APPROVED REPORT EKG Measurement Heart [id number] RI [id number] <Conclusion> Sinus tachycardia Left ventricular hypertrophy with repolarization abnormality Abnormal ECG
--- NOTE | 2020-04-14 20:03 | Cardiology Report ---
APPROVED REPORT EKG Measurement Heart [id number] IN [id number] [id number] <Conclusion> Sinus tachycardia Possible Left atrial enlargement ST & T wave abnormality, consider inferolateral ischemia Abnormal ECG
--- NOTE | 2020-04-14 20:04 | Cardiology Report ---
APPROVED REPORT EKG Measurement Heart [id number] [place] [id number] <Conclusion> Sinus tachycardia Possible Left atrial enlargement Inferior infarct, age undetermined ST & T wave abnormality, consider lateral ischemia Abnormal ECG
--- NOTE | 2020-04-15 08:58 | Cardiology Report ---
APPROVED REPORT EXAM: Two-dimensional and M-mode echocardiogram with Doppler and color Doppler. INDICATION CVA/TIA M-Mode DIMENSIONS IVSd0.9 (0.7-1.1cm)Left Atrium (MM)3.0 (1.6-4.0cm) LVDd4.1 (3.5-5.6cm)Aortic Root3.6 (2.0-3.7cm) PWd0.9 (0.7-1.1cm)Aortic Cusp Exc.1.5 (1.5-2.0cm) IVSs1.9 cmEPSS0.3 (>1.0cm) LVDs2.8 (2.5-4.0cm) PWs1.1 cm Other Information Technically limited study due to cardiac accoustic angle. <Conclusion> Normal left ventricular chamber size, systolic function and wall motion. Left ventricular ejection fraction estimated to be 60 %. Mild left ventricular hypertrophy. Small pericardial effusion along the free wall of RV. Possible large posterior pleural effusion. All other cardiac chamber sizes are within normal limits. Moderate focal aortic valve sclerosis with adequate cusp excursion. Moderately thickened mitral valve leaflets with normal excursion. Mitral annulus and aortic root calcification. Pulmonic valve not well visualized. Normal tricuspid valve structure. IVC at normal size with physiologic collapse. A color flow and spectral Doppler study was performed and revealed: Trace aortic regurgitation. Mild to moderate mitral regurgitation. Mitral diastolic velocities suggest reduced left ventricular relaxation c/w mild LV diastolic dysfunction (Grade I ). Trace tricuspid regurgitation. Tricuspid systolic velocities suggests peak right ventricular systolic pressure of 13 mmHg. Trace pulmonic regurgitation present.
== END 2020-04-14 16:21 | DRG 281 ==
LOC: EDBD 19:04 → EMR 19:26 → 2E 19:32 → EDBEDREQ 20:25
DX: I21.4 Non-ST elevation (NSTEMI) myocardial infarction (principal); I16.1 Hypertensive emergency; E87.1 Hypo-osmolality and hyponatremia; I69.351 Hemiplegia and hemiparesis following cerebral infarction affecting right dominant side; E87.6 Hypokalemia; R73.9 Hyperglycemia, unspecified
CPT/HCPCS: 36415; 70450; 71045; 80048; 80053; 83036; 83690; 84484; 85025; 85610; 85730; 93005; 93306; 96374; 99285; J8499; U0002

== ENCOUNTER 2020-05-12 14:52 | Emergency (ER) | payer MEDICARE, OTHER ==
[~2020-05-12] VITALS: Ht 157.5 cm; Wt 72.6 kg
[~2020-05-12 14:52] MED LIST: ACETAMINOPHEN500 MG ORAL; AMLODIPINE BESYL5 MG ORAL; ASPIRIN EC81 MG ORAL; BENAZEPRIL HCL40 MG ORAL; LIPITOR80 MG ORAL; MELATONIN3 MG ORAL; METOPROLOL TART50 MG ORAL; NORVASC10 MG ORAL; THEANINE PO; TRIAZOLAM0.125 MG PO
--- NOTE | 2020-05-12 15:15 | NUR ---
ED Nurse Note: Pt walked in from DNP office c/o urinary retention x 5 days. Pt reports blood in urine yesterday. Pt is AOx4, calm and cooperative to care, VSS, on RA, afebrile on triage. Pt was placed on bed, ERMD at bedside.
--- NOTE | 2020-05-12 15:23 | Emergency Room Report ---
History of Present Illness General Chief Complaint: Male Urogenital Problems Source: Patient Present Illness HPI Disclaimer: Please note that this report is being documented using [employer] technology. This can lead to erroneous entry secondary to incorrect interpretation by the dictating instrument. HPI: 69-year-old male history of hypertension, hyperlipidemia, CVA with residual right sided weakness and dysarthria presents for evaluation of urinary retention. Patient states he has had intermittent episodes of urinary retention, mostly during the day, and urinary incontinence at night. Over the past 2 days he has had intermittent hematuria. He denies abdominal pain, dysuria, penile discharge, flank pain, fever, chills, nausea, vomiting, diarrhea or other symptoms. No prior history of urinary retention. Denies history of BPH. Takes no medications for BPH. Does not take blood thinners. No trauma reported. Denies testicular pain or swelling. 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 EOMI. Cardiovascular: RRR. S1 and S2 normal. No murmur appreciated Resp: Normal work of breathing. No cough, wheezing or crackles appreciated Abdomen: Abdomen is soft, nondistended. Nontender, no masses Rectal: Firm stool in rectal vault. No melena, and no bright blood. Prostate is firm, enlarged, somewhat nodular. No tenderness, no fluctuance Skin: Intact. No abrasions, laceration or rash over the exposed skin MSK: Normal tone and bulk. Moving all extremities. No obvious deformity. Right fist held in contracture. Neuro: Awake and alert. Mentating appropriately. Medical Decision Making Diagnostic Impression: Primary Impression: UTI (urinary tract infection) Additional Impressions: Urinary retention Microscopic hematuria ER Course 69-year-old male presents for evaluation of intermittent urinary retention of the past week with hematuria. Differential includes was not limited to BPH, obstruction, blood clot, cystitis, renal failure among others. Prostate is firm, enlarged and nontender. Patient was able to void 200 cc clear/yellow urine without blood on arrival. A postvoid residual residual bedside ultrasound was performed showing 55 cc retained. Patient's belly exam is benign. He is neurologically intact and is ambulatory without difficulty. Patient will be started on Flomax. Urinalysis shows 1+ leukocyte esterase and WBCs along with red cells. Questionable UTI but until culture results will start on Keflex. Patient can follow-up for hematuria with urology through his PPO. I discussed the findings and treatment plan with his son Pancho by telephone. He will help coordinate his care. Patient is stable and appropriate for outpatient follow- up. Laboratory Tests Test 05/12/20 15:35 White Blood Count 9.4 K/UL (4.8-10.8) Red Blood Count 4.90 M/UL (4.70-6.10) Hemoglobin 15.0 G/DL (14.2-18.0) Hematocrit 43.8 % (42.0-52.0) Mean Corpuscular Volume 89 FL (80-99) Mean Corpuscular Hemoglobin 30.7 PG (27.0-31.0) Mean Corpuscular Hemoglobin Concent 34.3 G/DL (32.0-36.0) Red Cell Distribution Width 12.0 % (11.6-14.8) Platelet Count 194 K/UL (150-450) Mean Platelet Volume 7.4 FL (6.5-10.1) Neutrophils (%) (Auto) 69.2 % (45.0-75.0) Lymphocytes (%) (Auto) 18.8 % (20.0-45.0) L Monocytes (%) (Auto) 9.8 % (1.0-10.0) Eosinophils (%) (Auto) 0.9 % (0.0-3.0) Basophils (%) (Auto) 1.3 % (0.0-2.0) Prothrombin Time 11.4 SEC (9.30-11.50) Prothrombin Time INR 1.0 (0.9-1.1) Activated Partial Thromboplast Time 31 SEC (23-33) Urine Color Pale yellow Urine Appearance Clear Urine pH 6 (4.5-8.0) Urine Specific [place] 1.030 (1.005-1.035) Urine Protein Negative (NEGATIVE) Urine Glucose (UA) Negative (NEGATIVE) Urine Ketones Negative (NEGATIVE) Urine Blood 5+ (NEGATIVE) H Urine Nitrite Negative (NEGATIVE) Urine Bilirubin Negative (NEGATIVE) Urine Urobilinogen Normal MG/DL (0.0-1.0) Urine Leukocyte Esterase 1+ (NEGATIVE) H Urine RBC 30-40 /HPF (0 - 0) H Urine WBC 5-10 /HPF (0 - 0) H Urine Squamous Epithelial Cells Few /LPF (NONE/OCC) Urine Bacteria Few /HPF (NONE) Sodium Level 136 MMOL/L (136-145) Potassium Level 4.2 MMOL/L (3.5-5.1) Chloride Level 102 MMOL/L (98-107) Carbon Dioxide Level 28 MMOL/L (21-32) Anion Gap 6 mmol/L (5-15) Blood Urea Nitrogen 16 mg/dL (7-18) Creatinine 1.1 MG/DL (0.55-1.30) Estimated Glomerular Filtration Rate > 60 mL/min (>60) Glucose Level 93 MG/DL (74-106) Calcium Level 8.8 MG/DL (8.5-10.1) Last Vital Signs Date Time Temp Pulse Resp B/P (MAP) Pulse Ox O2 Delivery O2 Flow Rate FiO2 05/12/20 14:55 98.6 103 22 166/99 (121) 95 Room Air Disposition: HOME, SELF-CARE Condition: Stable Scripts Cephalexin* (KEFLEX*) 500 Mg Capsule 500 MG ORAL EVERY 12 HOURS for 7 Days, #14 CAP 0 Refills Prov: David Jorgensen MD 05/12/20 Tamsulosin HCl (Flomax) 0.4 Mg Cap.er.24h 0.4 MG ORAL DAILY for BPH for 30 Days, #30 CAP Prov: David Jorgensen MD 05/12/20 David Jorgensen MD May 12, 2020 15:23
[2020-05-12 15:47] VITALS: BP 166/99
[2020-05-12 16:05] LABS: APPEARANCE,URINE CLEAR; BILIRUBIN, URINE NEGATIVE (NEGATIVE); COLOR,URINE PALE YELLOW; GLUCOSE, URINE (UA) NEGATIVE (NEGATIVE); KETONES,URINE NEGATIVE (NEGATIVE); LEUKOCYTE ESTERASE ,URINE 1+ (NEGATIVE); NITRITE,URINE NEGATIVE (NEGATIVE); PH,URINE 6 (4.5-8.0); PROTEIN,URINE NEGATIVE (NEGATIVE); UROBILINOGEN,URINE NORMAL MG/DL (0.0-1.0)
[2020-05-12 16:08] LABS: ANION GAP 6 mmol/L (5-15); BLOOD UREA NITROGEN 16 mg/dL (7-18); CALCIUM 8.8 MG/DL (8.5-10.1); CARBON DIOXIDE 28 MMOL/L (21-32); CHLORIDE 102 MMOL/L (98-107); CREATININE 1.1 MG/DL (0.55-1.30); POTASSIUM 4.2 MMOL/L (3.5-5.1); SODIUM 136 MMOL/L (136-145)
[2020-05-12 16:12] LABS: BASOPHILS % (AUTO) 1.3 % (0.0-2.0); EOSINOPHILS % (AUTO) 0.9 % (0.0-3.0); HEMATOCRIT 43.8 % (42.0-52.0); LYMPHOCYTES % (AUTO) 18.8 % (20.0-45.0); MEAN CORPUSCULAR VOLUME 89 FL (80-99); MONOCYTES % (AUTO) 9.8 % (1.0-10.0); NEUTROPHILS % (AUTO) 69.2 % (45.0-75.0); PLATELET COUNT 194 K/UL (150-450); WHITE BLOOD COUNT 9.4 K/UL (4.8-10.8)
[2020-05-12] MEDS ORDERED: CEPHALEXIN500 MG ORAL (16:30)
[2020-05-12] MEDS ORDERED: FLOMAX0.4 MG ORAL (16:30)
[2020-05-12 17:26] VITALS: BP 150/80
--- NOTE | 2020-05-12 17:31 | NUR ---
discharged home with instruction and rx follow up with pmd written instruction given to patient and verbal given to son. home by rigo
== END 2020-05-12 17:33 | disposition home or self-care (01) ==
LOC: EMR 15:27
DX: N39.0 Urinary tract infection, site not specified (principal); R33.9 Retention of urine, unspecified; R31.29 Other microscopic hematuria; I10 Essential (primary) hypertension; Z86.73 Personal history of transient ischemic attack (TIA), and cerebral infarction without residual deficits
CPT/HCPCS: 36415; 80048; 81003; 85025; 85610; 85730; 99284

== ENCOUNTER 2020-05-14 12:15 | Inpatient (IN) | payer MEDICARE, MEDICAID ==
[~2020-05-14] VITALS: Ht 160 cm; Wt 55.3 kg
[~2020-05-14 12:15] MED LIST changes: +CEPHALEXIN500 MG ORAL; +FLOMAX0.4 MG ORAL
--- NOTE | 2020-05-14 12:17 | NUR ---
ED Nurse Note: Patient c/o pain in the left chest, pointing the area. ERMD notified.
--- NOTE | 2020-05-14 12:30 | NUR ---
ED Nurse Note: Patient was brought in by ambulance from home due to generalized weakness; patient dx with UTI and currently taking antibiotics. Patient presented weak, AAO x4, VSS at this time.
--- NOTE | 2020-05-14 12:55 | NUR ---
ED Nurse Note: IV line was established on left AC 18ga, blood collected sent to lab
--- NOTE | 2020-05-14 13:03 | Emergency Room Report ---
History of Present Illness General Chief Complaint: Chest Pain Source: Patient Present Illness HPI 69-year-old male presents to the emergency department 8 out of 10 severity left- sided chest pain with generalized weakness x2 days. Patient with history of ACS in the past, CVA with right-sided residual deficit as well as high blood pressure and hyperlipidemia. Patient denies fevers or chills. He denies nausea or vomiting. Patient reports taking antibiotics recently for UTI. He denies abdominal pain, dysuria, hematuria or urinary frequency. Patient reports last time he urinated was last night. He denies back pain. He denies dizziness. Patient denies headache, neck pain or stiffness. Patient denies constipation or diarrhea. He denies blood in the stool or dark tarry stools. Patient describes his chest pain is constant in nature he states it does not change with respirations. He denies shortness of breath or coughing. He states he has not taken any medications at home for his chest pain such as aspirin or nitroglycerin. Patient states he has taken all other prescribed medications. Denies any new onset localized paresthesias or loss of gross motor function. He denies any aggravating or relieving factors. 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: No Patient History Past Medical History: see triage record Past Surgical History: none Pertinent Family History: none Reviewed Nursing Documentation: PMH: Agreed; PSxH: Agreed Nursing Documentation-PMH Past Medical History: No History, Except For Hx Cardiac Problems: No - insomnia Hx Hypertension: Yes Hx Cerebrovascular Accident: Yes - right sided weakness Review of Systems All Other Systems: negative except mentioned in HPI Physical Exam Vital Signs Date Time Temp Pulse Resp B/P (MAP) Pulse Ox O2 Delivery O2 Flow Rate FiO2 05/14/20 12:16 98.4 120 16 198/117 (144) 99 Room Air Sp02 EP Interpretation: reviewed, normal General Appearance: alert, GCS 15, non-toxic, mild distress, Chronically Ill - Right sided deficit UE and LE. Head: normocephalic, atraumatic Eyes: bilateral eye normal inspection, bilateral eye PERRL ENT: hearing grossly normal, normal voice Neck: full range of motion Respiratory: chest non-tender, lungs clear, no accessory muscle use, no wheezing, speaking full sentences, other Cardiovascular #1: regular rate, rhythm, no edema, systolic murmur - 3+--- holosystolic Gastrointestinal: normal bowel sounds, non tender, soft, non-distended, no guarding Genitourinary: normal inspection, no CVA tenderness Musculoskeletal: normal range of motion, non-tender Neurologic: alert, oriented x3, sensory intact, responsive, speech normal - 3-4 word sentences,, other - RIght sided UE and LE motor deficit. Right hand contracture and visible muscle atrophy in both UE and LE. Pt. wears right ankle brace. Psychiatric: judgement/insight normal Skin: no rash, normal color Medical Decision Making PA Attestation Dr. Mukherjee Is my supervising Physician whom patient management has been discussed with. Diagnostic Impression: Primary Impression: ACS (acute coronary syndrome) ER Course Pt. presents to the ED c/o CP and marked generalized weakness. Ddx considered but are not limited to ME, pneumonia, contusion, costochondritis, PE, ACS, NSTEMI, Shoulder strain, Chest wall contusion. Urosepsis, aortic dissection. Vital signs: pt. is afebrile. He is tachycardic on arrival and placed into a monitored bed. H&PE are most consistent with elderly male with complicated PmHx. presenting with CP, abnormal EKG demonstrating increased cardiac work and possible ischemia requiring laboratory work up and admission to the hospital for serial troponin testing and cardiology evaluation. Pt. was recently placed on antibiotics for UTI, and urosepsis is of high consideration as well. Pt. speaks 3-4 word sentences, and has reduced knowledge regarding his full medical history. ORDERS: - EKG: Sinus tachycardia at a rate of [address] abnormalities and evidence of left ventricular hypertrophy in the presence of having chest pain. Patient was given 325 mg aspirin orally -CBC: WNL -CMP: Pending at time of admission -UA: WNL -Lactic Acid: pending at time of admission -Troponin: 0.9 Elevated CXR: WNL ED INTERVENTIONS: - PT. placed on cardiac monitoring. -Pt. given 325mg ASA PO DISPOSITION: at this time pt. will be admitted to Dr. Bynum for ACS . Dr. Bynum agreed to admit the pt. and to continue pt. care management. Laboratory Tests Test 05/16/20 06:25 White Blood Count 9.4 K/UL (4.8-10.8) Red Blood Count 4.70 M/UL (4.70-6.10) Hemoglobin 14.5 G/DL (14.2-18.0) Hematocrit 43.6 % (42.0-52.0) Mean Corpuscular Volume 93 FL (80-99) Mean Corpuscular Hemoglobin 30.9 PG (27.0-31.0) Mean Corpuscular Hemoglobin Concent 33.2 G/DL (32.0-36.0) Red Cell Distribution Width 11.9 % (11.6-14.8) Platelet Count 188 K/UL (150-450) Mean Platelet Volume 7.3 FL (6.5-10.1) Neutrophils (%) (Auto) 72.2 % (45.0-75.0) Lymphocytes (%) (Auto) 17.3 % (20.0-45.0) L Monocytes (%) (Auto) 8.5 % (1.0-10.0) Eosinophils (%) (Auto) 1.3 % (0.0-3.0) Basophils (%) (Auto) 0.6 % (0.0-2.0) Sodium Level 138 MMOL/L (136-145) Potassium Level 4.0 MMOL/L (3.5-5.1) Chloride Level 106 MMOL/L (98-107) Carbon Dioxide Level 24 MMOL/L (21-32) Anion Gap 8 mmol/L (5-15) Blood Urea Nitrogen 15 mg/dL (7-18) Creatinine 1.0 MG/DL (0.55-1.30) Estimated Glomerular Filtration Rate > 60 mL/min (>60) Glucose Level 104 MG/DL (74-106) Calcium Level 8.1 MG/DL (8.5-10.1) L Magnesium Level 2.2 MG/DL (1.8-2.4) EKG Diagnostic Results Troponin ordered: Yes When was troponin ordered?: May 14, 2020 EKG Time: 12:27 Rate: tachycardiac - 121 Rhythm: NSR Other Impression Inverted T-wave in V-6 & V1,, Left vent. Hypertrophy ASA given to the pt in ED: Yes PA Scribe Text This Interpretation was scribed by PAM Poon. Chest X-Ray Diagnostic Results Chest X-Ray Diagnostic Results : Chest X-Ray Ordered: Yes # of Views/Limited/Complete: 1 View Indication: Chest Pain EP Interpretation: Yes PAM Xray: Interpretation reviewed, by supervising MD, and agrees with zaria cardoso. Interpretation: no consolidation, no effusion, no pneumothorax, no acute cardiopulmonary disease Impression: No acute disease Electronically Signed by: Phuong Poon PA-C Last Vital Signs Date Time Temp Pulse Resp B/P (MAP) Pulse Ox O2 Delivery O2 Flow Rate FiO2 05/14/20 12:16 98.4 120 16 198/117 (144) 99 Room Air Disposition: ADMITTED INPATIENT Condition: Serious Scripts Finasteride (FINASTERIDE) 5 Mg Tablet 5 MG ORAL DAILY for 30 Days, #30 TAB Prov: Prasanna Aguilar D.O 05/16/20 Doxycycline Monohydrate* (DOXYCYCLINE MONOHYDRATE*) 100 Mg Capsule 100 MG ORAL EVERY 12 HOURS for 30 Days, #30 CAP Prov: Prasanna Aguilar D.O 05/16/20 Phuong Poon May 14, 2020 13:03
[2020-05-14 13:53] LABS: BASOPHILS % (AUTO) 0.6 % (0.0-2.0); EOSINOPHILS % (AUTO) 0.8 % (0.0-3.0); HEMATOCRIT 46.2 % (42.0-52.0); HEMOGLOBIN 14.9 G/DL (14.2-18.0); MEAN CORPUSCULAR VOLUME 93 FL (80-99); MONOCYTES % (AUTO) 10.3 % (1.0-10.0); NEUTROPHILS % (AUTO) 77.3 % (45.0-75.0); PLATELET COUNT 186 K/UL (150-450); RED BLOOD COUNT 4.97 M/UL (4.70-6.10); RED CELL DISTRIBUTION WIDTH 12.3 % (11.6-14.8); WHITE BLOOD COUNT 9.1 K/UL (4.8-10.8)
[2020-05-14 14:08] VITALS: BP 198/117
[2020-05-14 14:11] LABS: ANION GAP 6 mmol/L (5-15); BLOOD UREA NITROGEN 17 mg/dL (7-18); CALCIUM 8.7 MG/DL (8.5-10.1); CARBON DIOXIDE 30 MMOL/L (21-32); CHLORIDE 103 MMOL/L (98-107); CREATININE 1.1 MG/DL (0.55-1.30); POTASSIUM 3.9 MMOL/L (3.5-5.1); SODIUM 138 MMOL/L (136-145)
[2020-05-14 14:19] LABS: CREATINE KINASE 102 U/L (26-308)
[2020-05-14 14:26] LABS: ALANINE AMINOTRANSFERASE 17 U/L (12-78); ALBUMIN 3.7 G/DL (3.4-5.0); ALBUMIN/GLOBULIN RATIO 0.9 (1.0-2.7); ALKALINE PHOSPHATASE 66 U/L (46-116); ASPARTATE AMINO TRANSFERASE 18 U/L (15-37); BILIRUBIN,TOTAL 0.4 MG/DL (0.2-1.0)
--- NOTE | 2020-05-14 15:04 | NUR ---
ED Nurse Note: urine collected sent to lab
--- NOTE | 2020-05-14 15:13 | Diagnostic Imaging Report ---
Indication: Reason For Exam: PAIN Technique: Single AP view of the chest. Comparison: Chest radiograph dated 04/12/2020 Findings: The cardiomediastinal silhouette is unchanged in appearance. Left hemidiaphragm is again noted to be elevated with associated volume loss and left basilar atelectasis. No new airspace consolidation. No pneumothorax or pleural effusion. No acute osseous abnormality. There is a rounded density projecting over the right lung base. IMPRESSION: 1. No radiographic evidence of acute cardiopulmonary process. 2. Rounded density projecting over the right lung base which could correspond to nipple shadow or EKG leads sticker, though pulmonary nodule is not excluded.
[2020-05-14 15:38] LABS: APPEARANCE,URINE CLEAR; BILIRUBIN, URINE NEGATIVE (NEGATIVE); COLOR,URINE PALE YELLOW; GLUCOSE, URINE (UA) NEGATIVE (NEGATIVE); KETONES,URINE NEGATIVE (NEGATIVE); LEUKOCYTE ESTERASE ,URINE NEGATIVE (NEGATIVE); NITRITE,URINE NEGATIVE (NEGATIVE); PH,URINE 8 (4.5-8.0); PROTEIN,URINE NEGATIVE (NEGATIVE); UROBILINOGEN,URINE NORMAL MG/DL (0.0-1.0)
--- NOTE | 2020-05-14 16:02 | History and Physical ---
History of Present Illness General Date patient seen: May 14, 2020 Reason for Hospitalization: Chest Pain Present Illness HPI 69-year-old Gabonese male with past medical history of multivessel CAD, NSTEMI, hypertension, CVA with residual right-sided weakness and hyperlipidemia, presents to the ER chest pain. Started this afternoon at home without much exertion, pressure like pain in left side of chest associated with SOB, no nausea or diaphoresis. He reports taking antihypertensive meds at home but cannot recall their names. He does not take ASA. He does take Lipitor. Currently feels chest pain and SOB are better compared to when he arrived. Previous recent admission for chest pain and NSTEMI, transferred to [facility] for cath that showed severe 3-vessel CAD for which CABG was recommended but patient refused, so medically managed. Past medical history: Hypertension, CVA with residual right upper extremity weak ness, dyslipidemia Past surgical history: Denies surgical history Social history: Smoking: Former smoker, used to smoke 2 PPD for many years, quit 10/2019 Alcohol use: Denies Drug use: Denies History: Denies family history of HTN or heart disease, though patient is unsure of family history Allergies: Coded Allergies: No Known Allergies (Unverified , 04/12/20) COVID-19 Screening Contact w/high risk pt: No Recent Travel to affected area: No Experienced COVID-19 symptoms?: No Medication History Scheduled Amlodipine Besylate (Norvasc), 10 MG ORAL DAILY Aspirin Ec* (Aspirin Ec*), 81 MG ORAL DAILY Atorvastatin (Lipitor), 80 MG ORAL BEDTIME Benazepril Hcl* (Benazepril Hcl*), 40 MG ORAL DAILY, (Reported) Cephalexin* (Keflex*), 500 MG ORAL EVERY 12 HOURS Metoprolol Tartrate* (Metoprolol Tartrate*), 50 MG ORAL Q12HR Tamsulosin HCl (Flomax), 0.4 MG ORAL DAILY Triazolam* (Halcion*), 0.125 MG PO QHS PRN SLEEP, (Reported) Scheduled PRN Acetaminophen* (Tylenol Extra Strength*), 1,000 MG ORAL Q8HR PRN Melatonin (Melatonin), 3 MG ORAL BEDTIME PRN for Insomnia, (Reported) [L-Theanine Cap], 1 CAP PO BEDTIME PRN for INSOMNIA, (Reported) Patient History Healthcare decision maker Resuscitation status Advanced Directive on File Review of Systems Constitutional: Denies: chills, sweats, fever Eye: Denies: eye pain, nose pain ENT: Denies: ear pain, throat pain Respiratory: Denies: cough, orthopnea Cardiovascular: Denies: syncope Gastrointestinal: Denies: abdominal pain, constipation, diarrhea Genitourinary: Denies: dysuria, hematuria Musculoskeletal: Denies: joint pain, joint swelling Skin: Denies: rash, dryness Psychiatric: Denies: anxiety, hallucinations Neurological: Denies: numbness, paresthesia, focal weakness Endocrine: Denies: intolerance to temperature, unexplained weight loss Hematologic/Lymphatic: Denies: easy bleeding, easy bruising Physical Exam General Appearance: WD/WN, no apparent distress, alert HEENT: normocephalic, atraumatic, anicteric, PERRL, EOMI Neck: non-tender, supple, normal inspection Respiratory/Chest: chest wall non-tender, lungs clear, normal breath sounds, no respiratory distress, no accessory muscle use Cardiovascular/Chest: normal rate, regular rhythm, no gallop/murmur Abdomen: normal bowel sounds, non tender, soft, no organomegaly Extremities: normal range of motion, non-tender, normal inspection, no calf tenderness Skin Exam: normal pigmentation, warm/dry Neurologic: cementer helper II-XII grossly normal, alert, oriented x 3, normal mood/affect Last 24 Hour Vital Signs Date Time Temp Pulse Resp B/P (MAP) Pulse Ox O2 Delivery O2 Flow Rate FiO2 05/14/20 14:08 120 16 Room Air 05/14/20 14:08 98.4 16 198/117 99 Room Air 05/14/20 12:16 98.4 120 16 198/117 (144) 99 Room Air Laboratory Tests Test 05/14/20 13:30 05/14/20 15:03 White Blood Count 9.1 K/UL (4.8-10.8) Red Blood Count 4.97 M/UL (4.70-6.10) Hemoglobin 14.9 G/DL (14.2-18.0) Hematocrit 46.2 % (42.0-52.0) Mean Corpuscular Volume 93 FL (80-99) Mean Corpuscular Hemoglobin 30.0 PG (27.0-31.0) Mean Corpuscular Hemoglobin Concent 32.3 G/DL (32.0-36.0) Red Cell Distribution Width 12.3 % (11.6-14.8) Platelet Count 186 K/UL (150-450) Mean Platelet Volume 7.3 FL (6.5-10.1) Neutrophils (%) (Auto) 77.3 % (45.0-75.0) H Lymphocytes (%) (Auto) 11.0 % (20.0-45.0) L Monocytes (%) (Auto) 10.3 % (1.0-10.0) H Eosinophils (%) (Auto) 0.8 % (0.0-3.0) Basophils (%) (Auto) 0.6 % (0.0-2.0) Sodium Level 138 MMOL/L (136-145) Potassium Level 3.9 MMOL/L (3.5-5.1) Chloride Level 103 MMOL/L (98-107) Carbon Dioxide Level 30 MMOL/L (21-32) Anion Gap 6 mmol/L (5-15) Blood Urea Nitrogen 17 mg/dL (7-18) Creatinine 1.1 MG/DL (0.55-1.30) Estimat Glomerular Filtration Rate > 60 mL/min (>60) Glucose Level 119 MG/DL (74-106) H Lactic Acid Level 1.30 mmol/L (0.4-2.0) Calcium Level 8.7 MG/DL (8.5-10.1) Total Bilirubin 0.4 MG/DL (0.2-1.0) Aspartate Amino Transf (AST/SGOT) 18 U/L (15-37) Alanine Aminotransferase (ALT/SGPT) 17 U/L (12-78) Alkaline Phosphatase 66 U/L (46-116) Total Creatine Kinase 102 U/L (26-308) Troponin I 0.038 ng/mL (0.000-0.056) Total Protein 7.7 G/DL (6.4-8.2) Albumin 3.7 G/DL (3.4-5.0) Globulin 4.0 g/dL Albumin/Globulin Ratio 0.9 (1.0-2.7) L Urine Color Pale yellow Urine Appearance Clear Urine pH 8 (4.5-8.0) Urine Specific [place] 1.010 (1.005-1.035) Urine Protein Negative (NEGATIVE) Urine Glucose (UA) Negative (NEGATIVE) Urine Ketones Negative (NEGATIVE) Urine Blood 5+ (NEGATIVE) H Urine Nitrite Negative (NEGATIVE) Urine Bilirubin Negative (NEGATIVE) Urine Urobilinogen Normal MG/DL (0.0-1.0) Urine Leukocyte Esterase Negative (NEGATIVE) Urine RBC 20-30 /HPF (0 - 0) H Urine WBC 0-2 /HPF (0 - 0) Urine Squamous Epithelial Cells Occasional /LPF Urine Bacteria Few /HPF (NONE) Height (Feet): 5 Height (Inches): 4.00 Weight (Pounds): 135 Assessment/Plan Assessment/Plan: #NSTEMI ACS with elevated troponin. EKG 05/14/2020: sinus tachycardia with LVH. Known 3- vessel CAD though pt refused CABG. - trend EKG/troponin - cardiology consult Dr. Sanchez, recs appreciated - recommend patient have CABG done, may need transfer to [facility] if patient is amenable to surgery - Imdur, ASA, statin #CAD - 3 vessel disease #HTN #HLD Known 3-vessel CAD though pt refused CABG. - ASA, statin, continue antihypertensives #Hx of CVA Residual deficits noted - PT/OT Diet: cardiac DVT ppx: heparin subQ Code status: Full I spent 66 minutes on this patient's case, and 34 minutes was dedicated to counseling and/or care coordination with RN, case advocate, consulting MD team I spent an additional 39 minutes on review of medical records including prior outside hospital records, consult notes, progress notes, procedures, imaging, labs, hemodynamics, and other clinical documentation. Time of note may not reflect time patient was seen. Sathish Loo M.D. May 14, 2020 16:02
[2020-05-14 16:38] VITALS: BP 159/93
--- NOTE | 2020-05-14 16:40 | Cardiac Electrophysiology PN ---
Subjective Subjective Well known to me as I transferred him last month from [place] to [facility] and underwent cardiac cath by me on 04/16 showed critical 3Vd. Not a PCI candidate but benefits from CABG per Dr Person He refused CABG . Dictated [id number] Objective Last 24 Hour Vital Signs Date Time Temp Pulse Resp B/P (MAP) Pulse Ox O2 Delivery O2 Flow Rate FiO2 05/14/20 14:08 120 16 Room Air 05/14/20 14:08 98.4 16 198/117 99 Room Air 05/14/20 12:16 98.4 120 16 198/117 (144) 99 Room Air Laboratory Tests Test 05/14/20 13:30 05/14/20 15:03 White Blood Count 9.1 K/UL (4.8-10.8) Red Blood Count 4.97 M/UL (4.70-6.10) Hemoglobin 14.9 G/DL (14.2-18.0) Hematocrit 46.2 % (42.0-52.0) Mean Corpuscular Volume 93 FL (80-99) Mean Corpuscular Hemoglobin 30.0 PG (27.0-31.0) Mean Corpuscular Hemoglobin Concent 32.3 G/DL (32.0-36.0) Red Cell Distribution Width 12.3 % (11.6-14.8) Platelet Count 186 K/UL (150-450) Mean Platelet Volume 7.3 FL (6.5-10.1) Neutrophils (%) (Auto) 77.3 % (45.0-75.0) H Lymphocytes (%) (Auto) 11.0 % (20.0-45.0) L Monocytes (%) (Auto) 10.3 % (1.0-10.0) H Eosinophils (%) (Auto) 0.8 % (0.0-3.0) Basophils (%) (Auto) 0.6 % (0.0-2.0) Sodium Level 138 MMOL/L (136-145) Potassium Level 3.9 MMOL/L (3.5-5.1) Chloride Level 103 MMOL/L (98-107) Carbon Dioxide Level 30 MMOL/L (21-32) Anion Gap 6 mmol/L (5-15) Blood Urea Nitrogen 17 mg/dL (7-18) Creatinine 1.1 MG/DL (0.55-1.30) Estimat Glomerular Filtration Rate > 60 mL/min (>60) Glucose Level 119 MG/DL (74-106) H Lactic Acid Level 1.30 mmol/L (0.4-2.0) Calcium Level 8.7 MG/DL (8.5-10.1) Total Bilirubin 0.4 MG/DL (0.2-1.0) Aspartate Amino Transf (AST/SGOT) 18 U/L (15-37) Alanine Aminotransferase (ALT/SGPT) 17 U/L (12-78) Alkaline Phosphatase 66 U/L (46-116) Total Creatine Kinase 102 U/L (26-308) Troponin I 0.038 ng/mL (0.000-0.056) Total Protein 7.7 G/DL (6.4-8.2) Albumin 3.7 G/DL (3.4-5.0) Globulin 4.0 g/dL Albumin/Globulin Ratio 0.9 (1.0-2.7) L Urine Color Pale yellow Urine Appearance Clear Urine pH 8 (4.5-8.0) Urine Specific [place] 1.010 (1.005-1.035) Urine Protein Negative (NEGATIVE) Urine Glucose (UA) Negative (NEGATIVE) Urine Ketones Negative (NEGATIVE) Urine Blood 5+ (NEGATIVE) H Urine Nitrite Negative (NEGATIVE) Urine Bilirubin Negative (NEGATIVE) Urine Urobilinogen Normal MG/DL (0.0-1.0) Urine Leukocyte Esterase Negative (NEGATIVE) Urine RBC 20-30 /HPF (0 - 0) H Urine WBC 0-2 /HPF (0 - 0) Urine Squamous Epithelial Cells Occasional /LPF Urine Bacteria Few /HPF (NONE) Tyler Sanchez MD May 14, 2020 16:40
--- NOTE | 2020-05-14 16:44 | NUR ---
ED Nurse Note: report given to williams bailey
--- NOTE | 2020-05-14 16:58 | NUR ---
ED Nurse Note: Patient was admited to Tele, due to ACS. Patient was transfered to the unit via gurney, by ACLS protocol, with all belongings. Patient AAO x4, VSS at this time, skin is intact, warm to touch.
[2020-05-14 17:43] VITALS: BP 159/93
--- NOTE | 2020-05-14 17:51 | NUR ---
NURSE NOTES: Report received from Sarai LOPEZ. Admitted from ER via gurney, pt ambulatory but noted with right sided weakness and contracted right upper extremity. Tele monitor hooked, sinus rhythm HR 100. Pt is not in any pain or distress. PIV on left AC patent and intact. Pt is continent. Belongings checked and accounted for. All admission orders done by Drs. Loo and Laura. Bed low and locked, siderails up x2, call light placed within reach and instructed to call nurse for assistance. Will continue with plan of care.
--- NOTE | 2020-05-14 19:29 | NUR ---
NURSE HAND-OFF REPORT: Important Events on Shift: Admitted from ER, admission orders in Patient Status: Stable Diet: Cardiac Pending Orders: Serial troponin, 2d echo Pending Results/Labs:: Labs in AM CBC, BMP Pending MD notification:N Latest Vital Signs: Temperature 98.4 , Pulse 100 , B/P 159 /93 , Respiratory Rate 19 , O2 SAT 100 , Room Air, O2 Flow Rate . Vital Sign Comment: EKG Rhythm: Sinus Rhythm Rhythm change?: MD Notified?: - MD Response: Latest Banks Fall Score: 40 Fall Risk: Medium Risk Safety Measures: Call light Within Reach, Bed Alarm Zone 1, Side Rails Side Rails x2, Bed position Low and Locked. Fall Precautions: Patient Fall Education Report given to Misty LOPEZ.
--- NOTE | 2020-05-14 19:39 | NUR ---
NURSE NOTES: Patient received from Laverne LOPEZ. Patient in stable condition. Alert and oriented x 4. Saturating well on room air. No c/o chest pain at this moment and no s/s of distress. IV site on Right AC 18G patent and intact SL. Bed in lowest position and locked. Call light and bedside table within reach. Patient requested for sleeping pill. Notified MD. Order received and carried out.
[2020-05-14 20:00] VITALS: BP 127/84
--- NOTE | 2020-05-14 20:00 | Consultation ---
DATE OF CONSULTATION: 05/14/2020 CARDIOLOGY CONSULTATION REFERRING PHYSICIAN: Ca Bynum M.D. REASON FOR CONSULTATION: Chest pain. The patient is with a history of coronary artery disease. HISTORY OF PRESENT ILLNESS: The patient is a 69-year-old [place] gentleman with history of hypertension, history of CVA with right-sided weakness, hyperlipidemia, as well as a history of recent non-Q-wave myocardial infarction in March 2020, for which I transferred him from [facility] to [facility] and I performed cardiac catheterization on April 16, 2020. Cardiac catheterization showed severe 3-vessel coronary artery disease with proximal LAD and proximal circumflex with bifurcation of obtuse marginal and proximal and distal right coronary artery. The patient was evaluated by Dr. Chávez as well as Dr. Person, and they both found that surgery is the best option; however, the patient refused and was discharged on medical therapy. The patient presented to the emergency room complaining of left-sided chest pain and shortness of breath. His troponin was again elevated. His EKG shows sinus rhythm with nonspecific ST-T wave abnormalities. REVIEW OF SYSTEMS: Negative other than what was mentioned in history of present illness. PAST MEDICAL HISTORY: As mentioned above and I reviewed in the patient's records at [facility]. FAMILY HISTORY: Noncontributory. SOCIAL HISTORY: He used to smoke 2 packs a day for many years, quit in October 2019. PHYSICAL EXAMINATION: VITAL SIGNS: Blood pressure of 198/117, pulse is 120, respirations 18, temperature 98.4. HEAD AND NECK: No JVD. LUNGS: Decreased breath sounds. CARDIOVASCULAR: Regular S1 and S2 with no gallop. ABDOMEN: Soft. EXTREMITIES: No pitting edema. He has right hemiplegia. LABORATORY AND DIAGNOSTIC DATA: His labs show white count 9.1, hemoglobin of 14.9, hematocrit 46.2, and platelet count of 186. Sodium 138, potassium 3.9, BUN of 17, creatinine 1.1, and glucose of 119. His troponin is negative. ASSESSMENT AND PLAN: 1. Chest pain. The patient is with 3-vessel coronary artery disease, confirmed by cardiac catheterization by me at [facility] on April 16, 2020 less than a month ago. That showed severe 3-vessel disease of proximal LAD and proximal circumflex at the bifurcation of obtuse marginal and proximal distal right coronary artery as well as proximal ramus intermedius branch. The patient is not a candidate for percutaneous intervention. However, he would benefit from coronary artery bypass graft per evaluation by Dr. Person. However, at that time, the patient refused. We will discuss with the patient again. At the meantime, resume the patient on aspirin 81 mg daily, Lipitor 80 mg daily, and metoprolol 50 mg b.i.d. 2. Hypertension. Resume metoprolol 50 mg b.i.d. and amlodipine 10 mg daily as well as p.r.n. clonidine. 3. History of CVA with right hemiplegia. 4. Hyperlipidemia. Thank you very much for allowing me to participate in the care of this patient. Please do not hesitate to contact me if you have any questions regarding my evaluation. Tyler Sanchez M.D. DR: HUSSEIN JOB#: [id number] CC:
[2020-05-14] MEDS: TraZODone HCl 25 mg tablet ORAL PRN (20:44)
[2020-05-14] MEDS: Metoprolol Tartrate 50mg tab ORAL SCH (20:45)
[2020-05-14] MEDS: Heparin 5000 units/ml inj SUBQ SCH (20:47)
--- NOTE | 2020-05-14 22:38 | NUR ---
NURSE NOTES: Notified Dr Sanchez for patient's Troponin of 0.928 trending up. Awaiting call back
[2020-05-15] VITALS: BP 119/68
[2020-05-15 04:00] VITALS: BP 126/72
--- NOTE | 2020-05-15 04:15 | NUR ---
NURSE NOTES: Notified Dr. Loo of patient's Hematuria. Awaiting call back.
[2020-05-15 05:16] LABS: BASOPHILS % (AUTO) 0.9 % (0.0-2.0); EOSINOPHILS % (AUTO) 1.7 % (0.0-3.0); HEMATOCRIT 45.5 % (42.0-52.0); HEMOGLOBIN 14.8 G/DL (14.2-18.0); MEAN CORPUSCULAR VOLUME 92 FL (80-99); NEUTROPHILS % (AUTO) 67.5 % (45.0-75.0); PLATELET COUNT 193 K/UL (150-450); RED BLOOD COUNT 4.92 M/UL (4.70-6.10); WHITE BLOOD COUNT 8.4 K/UL (4.8-10.8)
[2020-05-15 05:23] LABS: ANION GAP 7 mmol/L (5-15); BLOOD UREA NITROGEN 14 mg/dL (7-18); CALCIUM 8.1 MG/DL (8.5-10.1); CARBON DIOXIDE 26 MMOL/L (21-32); CHLORIDE 105 MMOL/L (98-107); POTASSIUM 3.8 MMOL/L (3.5-5.1); SODIUM 138 MMOL/L (136-145)
--- NOTE | 2020-05-15 05:58 | NUR ---
NURSE NOTES: Notified Dr. Sanchez of latest Troponin 0.965. Awaiting call back
--- NOTE | 2020-05-15 07:20 | NUR ---
NURSE HAND-OFF REPORT: Important Events on Shift:[Hematuria and Troponin elevated Dr. Sanchez aware. Continue Heparin as ordered.] Patient Status: [Stable] Diet: [Cardiac Diet] Pending Orders: [] Pending Results/Labs:[] Pending MD notification:[] Latest Vital Signs: Temperature 96.4 , Pulse 74 , B/P 126 /72 , Respiratory Rate 18 , O2 SAT 99 , Room Air, O2 Flow Rate . Vital Sign Comment: [] EKG Rhythm: Sinus Rhythm Rhythm change?: N MD Notified?: - MD Response: Latest Banks Fall Score: 40 Fall Risk: Medium Risk Safety Measures: Call light Within Reach, Bed Alarm Zone 1, Side Rails Side Rails x3, Bed position Low and Locked. Fall Precautions: Yellow Socks Yellow Gown Door Sign Patient Fall Education Report given to [Katie RN].
--- NOTE | 2020-05-15 07:21 | NUR ---
NURSE NOTES: Received patient in bed awake. No SOB or acute distress. IV line intact. HOB elevated. Bed locked in low position. Call light within reach. Will continue plan of care.
--- NOTE | 2020-05-15 07:27 | Cardiac Electrophysiology PN ---
Assessment/Plan Assessment/Plan 1. Chest pain. The patient has 3-vessel coronary artery disease, confirmed by cardiac catheterization by me at [facility] on April 16, 2020 less than a month ago. That showed severe 3-vessel disease of proximal LAD and proximal circumflex at the bifurcation of obtuse marginal and proximal distal right coronary artery as well as proximal ramus intermedius branch. The patient is not a candidate for percutaneous intervention. However, he would benefit from coronary artery bypass graft per evaluation by Dr. Person. However, at that time, the patient refused. We will discuss with the patient and his family again. At the meantime continue aspirin 81 mg daily, Lipitor 80 mg daily, and metoprolol 50 mg b.i.d. and Imdur 30 daily. Echo pending 2. Hypertension. Continue metoprolol 50 mg bid, amlodipine 10 mg daily, Imdur 30 daily as well as p.r.n. clonidine. 3. History of CVA with right hemiplegia. 4. Hyperlipidemia. AZAM RN Subjective Subjective Well known to me as I transferred him last month from [place] to [facility] and underwent cardiac cath by me on 04/16 showed critical 3Vd. Not a PCI candidate per Dr Chávez but benefits from CABG per Dr. Person He refused CABG then . No CP today Objective Last 24 Hour Vital Signs Date Time Temp Pulse Resp B/P (MAP) Pulse Ox O2 Delivery O2 Flow Rate FiO2 05/15/20 04:00 96.4 74 18 126/72 (90) 99 05/15/20 04:00 74 05/15/20 00:00 96.1 84 18 119/68 (85) 99 05/15/20 00:00 76 05/14/20 21:00 Room Air 05/14/20 20:45 105 127/84 05/14/20 20:00 97.9 113 18 127/84 (98) 97 05/14/20 20:00 113 05/14/20 17:43 98.4 100 19 159/93 (115) 100 05/14/20 16:58 98.4 100 19 159/93 100 Room Air 05/14/20 16:38 98.4 100 19 159/93 100 Room Air 05/14/20 14:08 120 16 Room Air 05/14/20 14:08 98.4 16 198/117 99 Room Air 05/14/20 12:16 98.4 120 16 198/117 (144) 99 Room Air Intake and Output 05/14/20 05/15/20 19:00 07:00 Intake Total 360 ml 600 ml Output Total 300 ml 400 ml Balance 60 ml 200 ml Intake Oral 360 ml 600 ml Output Urine Total 300 ml 400 ml # Voids 1 Laboratory Tests Test 05/14/20 13:30 05/14/20 15:03 05/14/20 21:40 05/15/20 03:00 White Blood Count 9.1 K/UL (4.8-10.8) 8.4 K/UL (4.8-10.8) Red Blood Count 4.97 M/UL (4.70-6.10) 4.92 M/UL (4.70-6.10) Hemoglobin 14.9 G/DL (14.2-18.0) 14.8 G/DL (14.2-18.0) Hematocrit 46.2 % (42.0-52.0) 45.5 % (42.0-52.0) Mean Corpuscular Volume 93 FL (80-99) 92 FL (80-99) Mean Corpuscular Hemoglobin 30.0 PG (27.0-31.0) 30.1 PG (27.0-31.0) Mean Corpuscular Hemoglobin Concent 32.3 G/DL (32.0-36.0) 32.6 G/DL (32.0-36.0) Red Cell Distribution Width 12.3 % (11.6-14.8) 12.0 % (11.6-14.8) Platelet Count 186 K/UL (150-450) 193 K/UL (150-450) Mean Platelet Volume 7.3 FL (6.5-10.1) 7.3 FL (6.5-10.1) Neutrophils (%) (Auto) 77.3 % (45.0-75.0) H 67.5 % (45.0-75.0) Lymphocytes (%) (Auto) 11.0 % (20.0-45.0) L 19.0 % (20.0-45.0) L Monocytes (%) (Auto) 10.3 % (1.0-10.0) H 11.0 % (1.0-10.0) H Eosinophils (%) (Auto) 0.8 % (0.0-3.0) 1.7 % (0.0-3.0) Basophils (%) (Auto) 0.6 % (0.0-2.0) 0.9 % (0.0-2.0) Sodium Level 138 MMOL/L (136-145) 138 MMOL/L (136-145) Potassium Level 3.9 MMOL/L (3.5-5.1) 3.8 MMOL/L (3.5-5.1) Chloride Level 103 MMOL/L (98-107) 105 MMOL/L (98-107) Carbon Dioxide Level 30 MMOL/L (21-32) 26 MMOL/L (21-32) Anion Gap 6 mmol/L (5-15) 7 mmol/L (5-15) Blood Urea Nitrogen 17 mg/dL (7-18) 14 mg/dL (7-18) Creatinine 1.1 MG/DL (0.55-1.30) 1.0 MG/DL (0.55-1.30) Estimat Glomerular Filtration Rate > 60 mL/min (>60) > 60 mL/min (>60) Glucose Level 119 MG/DL (74-106) H 107 MG/DL (74-106) H Lactic Acid Level 1.30 mmol/L (0.4-2.0) Calcium Level 8.7 MG/DL (8.5-10.1) 8.1 MG/DL (8.5-10.1) L Total Bilirubin 0.4 MG/DL (0.2-1.0) Aspartate Amino Transf (AST/SGOT) 18 U/L (15-37) Alanine Aminotransferase (ALT/SGPT) 17 U/L (12-78) Alkaline Phosphatase 66 U/L (46-116) Total Creatine Kinase 102 U/L (26-308) Troponin I 0.038 ng/mL (0.000-0.056) 0.928 ng/mL (0.000-0.056) 0.965 ng/mL (0.000-0.056) Total Protein 7.7 G/DL (6.4-8.2) Albumin 3.7 G/DL (3.4-5.0) Globulin 4.0 g/dL Albumin/Globulin Ratio 0.9 (1.0-2.7) L Urine Color Pale yellow Urine Appearance Clear Urine pH 8 (4.5-8.0) Urine Specific [place] 1.010 (1.005-1.035) Urine Protein Negative (NEGATIVE) Urine Glucose (UA) Negative (NEGATIVE) Urine Ketones Negative (NEGATIVE) Urine Blood 5+ (NEGATIVE) H Urine Nitrite Negative (NEGATIVE) Urine Bilirubin Negative (NEGATIVE) Urine Urobilinogen Normal MG/DL (0.0-1.0) Urine Leukocyte Esterase Negative (NEGATIVE) Urine RBC 20-30 /HPF (0 - 0) H Urine WBC 0-2 /HPF (0 - 0) Urine Squamous Epithelial Cells Occasional /LPF Urine Bacteria Few /HPF (NONE) Objective HEAD AND NECK: No JVD. LUNGS: Decreased breath sounds. CARDIOVASCULAR: Regular S1 and S2 with no gallop. ABDOMEN: Soft. EXTREMITIES: No pitting edema. He has right hemiplegia. Tyler Sanchez MD May 15, 2020 07:27
[2020-05-15 08:00] VITALS: BP 133/82
[2020-05-15] MEDS: Heparin 5000 units/ml inj SUBQ SCH ×2 (09:00→21:30)
[2020-05-15] MEDS: Metoprolol Tartrate 50mg tab ORAL SCH ×2 (09:02→21:29)
[2020-05-15] MEDS: Atorvastatin 80mg tab ORAL SCH (09:03)
[2020-05-15] MEDS: Imdur 30mg tab ORAL SCH (09:03)
--- NOTE | 2020-05-15 09:55 | General Progress Note ---
Subjective Constitutional: Denies: no symptoms, chills, diaphoresis, fever, malaise, weakness, other HEENT: Denies: no symptoms, eye pain, blurred vision, tearing, double vision, ear pain, ear discharge, nose pain, nose congestion, throat pain, throat swelling, mouth pain, mouth swelling, other Cardiovascular: Denies: no symptoms, chest pain, edema, irregular heart rate, lightheadedness, palpitations, syncope, other Respiratory: Denies: no symptoms, cough, orthopnea, shortness of breath, SOB with excertion, SOB at rest, sputum, stridor, wheezing, other Gastrointestinal/Abdominal: Denies: no symptoms, abdomen distended, abdominal pain, black stools, tarry stools, blood in stool, constipated, diarrhea, difficulty swallowing, nausea, poor appetite, poor fluid intake, rectal bleeding, vomiting, other Genitourinary: Denies: no symptoms, burning, discharge, frequency, flank pain, hematuria, incontinence, pain, urgency, other Neurologic/Psychiatric: Denies: no symptoms, anxiety, depressed, emotional problems, headache, numbness, paresthesia, pre-existing deficit, seizure, tingling, tremors, weakness, other Endocrine: Denies: no symptoms, excessive sweating, flushing, intolerance to cold, intolerance to heat, increased hunger, increased thirst, increased urine, unexplained weight gain, unexplained weight loss, other Hematologic/Lymphatic: Denies: no symptoms, anemia, easy bleeding, easy bruising, other Allergies: Coded Allergies: No Known Allergies (Unverified , 04/12/20) Subjective No acute events overnight. Patient has no chest pain at abdomen. No shortness of breath. Resting comfortably in bed. Noted to have gross hematuria which is new. Objective Last 24 Hour Vital Signs Date Time Temp Pulse Resp B/P (MAP) Pulse Ox O2 Delivery O2 Flow Rate FiO2 05/15/20 09:03 133/82 05/15/20 09:02 83 133/82 05/15/20 09:02 83 133/82 05/15/20 08:00 98.8 83 20 133/82 (99) 98 05/15/20 04:00 96.4 74 18 126/72 (90) 99 05/15/20 04:00 74 05/15/20 00:00 96.1 84 18 119/68 (85) 99 05/15/20 00:00 76 05/14/20 21:00 Room Air 05/14/20 20:45 105 127/84 05/14/20 20:00 97.9 113 18 127/84 (98) 97 05/14/20 20:00 113 05/14/20 17:43 98.4 100 19 159/93 (115) 100 05/14/20 16:58 98.4 100 19 159/93 100 Room Air 05/14/20 16:38 98.4 100 19 159/93 100 Room Air 05/14/20 14:08 120 16 Room Air 05/14/20 14:08 98.4 16 198/117 99 Room Air 05/14/20 12:16 98.4 120 16 198/117 (144) 99 Room Air l Intake and Output 05/14/20 05/15/20 19:00 07:00 Intake Total 360 ml 600 ml Output Total 300 ml 400 ml Balance 60 ml 200 ml Intake Oral 360 ml 600 ml Output Urine Total 300 ml 400 ml # Voids 1 Laboratory Tests 05/14/20 13:30: White Blood Count 9.1, Red Blood Count 4.97, Hemoglobin 14.9, Hematocrit 46.2, Mean Corpuscular Volume 93, Mean Corpuscular Hemoglobin 30.0, Mean Corpuscular Hemoglobin Concent 32.3, Red Cell Distribution Width 12.3, Platelet Count 186, Mean Platelet Volume 7.3, Neutrophils (%) (Auto) 77.3H, Lymphocytes (%) (Auto) 11.0L, Monocytes (%) (Auto) 10.3H, Eosinophils (%) (Auto) 0.8, Basophils (%) (Auto) 0.6, Sodium Level 138, Potassium Level 3.9, Chloride Level 103, Carbon Dioxide Level 30, Anion Gap 6, Blood Urea Nitrogen 17, Creatinine 1.1, Estimat Glomerular Filtration Rate > 60, Glucose Level 119H, Lactic Acid Level 1.30, Calcium Level 8.7, Total Bilirubin 0.4, Aspartate Amino Transf (AST/SGOT) 18, Alanine Aminotransferase (ALT/SGPT) 17, Alkaline Phosphatase 66, Total Creatine Kinase 102, Troponin I 0.038, Total Protein 7.7, Albumin 3.7, Globulin 4.0, Albumin/Globulin Ratio 0.9L 05/14/20 15:03: Urine Color Pale yellow, Urine Appearance Clear, Urine pH 8, Urine Specific [place] 1.010, Urine Protein Negative, Urine Glucose (UA) Negative, Urine Ketones Negative, Urine Blood 5+H, Urine Nitrite Negative, Urine Bilirubin Negative, Urine Urobilinogen Normal, Urine Leukocyte Esterase Negative, Urine RBC 20-30H, Urine WBC 0-2, Urine Squamous Epithelial Cells Occasional, Urine Bacteria Few 05/14/20 21:40: Troponin I 0.928H 05/15/20 03:00: White Blood Count 8.4, Red Blood Count 4.92, Hemoglobin 14.8, Hematocrit 45.5, Mean Corpuscular Volume 92, Mean Corpuscular Hemoglobin 30.1, Mean Corpuscular Hemoglobin Concent 32.6, Red Cell Distribution Width 12.0, Platelet Count 193, Mean Platelet Volume 7.3, Neutrophils (%) (Auto) 67.5, Lymphocytes (%) (Auto) 19.0L, Monocytes (%) (Auto) 11.0H, Eosinophils (%) (Auto) 1.7, Basophils (%) (Auto) 0.9, Sodium Level 138, Potassium Level 3.8, Chloride Level 105, Carbon Dioxide Level 26, Anion Gap 7, Blood Urea Nitrogen 14, Creatinine 1.0, Estimat Glomerular Filtration Rate > 60, Glucose Level 107H, Calcium Level 8.1L, Troponin I 0.965H Height (Feet): 5 Height (Inches): 3.00 Weight (Pounds): 122 General Appearance: no apparent distress, alert, alert oriented x3 EENT: PERRL/EOMI Neck: normal alignment, normal inspection Cardiovascular: normal rate, regular rhythm, no JVD Respiratory/Chest: lungs clear, normal breath sounds Abdomen: non tender, soft Extremities: non-tender Edema: no edema noted Arm (L), no edema noted Arm (R), no edema noted Leg (L), no edema noted Leg (R), no edema noted Pedal (L), no edema noted Pedal (R), no edema noted 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 Matthews 69-year-old [place] male with past medical history of multivessel CAD, NSTEMI, hypertension, CVA with residual right-sided weakness and hyperlipidemia, presents to the ER chest pain. # NSTEMI likely type I # Gross hematuria # Coronary artery disease multivessel # Essential hypertension # Hyperlipidemia # History of CVA P: Hemodynamically stable, no respiratory compromise Elevated troponins Recent history of PCI per cardiology which showed three-vessel CAD, PCI not indicated and CABG was recommended however patient had refused at the time. I had extensive discussion today regarding patient's cardiac disease and treatment options. Patient still refuses further invasive interventions at this time. He is more concerned about his hematuria. He says he does not want any surgeries however he would like to discuss about the heart again after his hematuria has resolved. We will continue metoprolol 50 mg daily, Imdur, aspirin, statin Echo: No regional wall motion abnormalities, EF 55 to 60%, no valvular dysfunction, normal elevation of RSVP Gross hematuria noted for about a week per patient UA was reviewed by myself showing RBCs and blood however negative for UTI, proteins. We will have urology see patient H&H stable We will hold chemical DVT prophylaxis until urology sees patient - cardiology consult Dr. Sanchez, recs appreciated Consult urology , davids appreciated Diet: cardiac DVT ppx: SCD GI: none Code status: Full Dispo: After further discussion with patient and family regarding treatment options, and urology consult for hematuria Time spent on this encounter was 55 minutes which included 35 minutes of counseling and care coordination. I discussed with the nurse at bedside. Time of note may not reflect time patient was seen. Prasanna Aguilar D.O May 15, 2020 09:55
--- NOTE | 2020-05-15 11:16 | NUR ---
NURSE NOTES: SCD's placed. Dr Phillips to ff case, picture of blood-tinged urine sent as requested.
[2020-05-15 12:00] VITALS: BP 123/79
--- NOTE | 2020-05-15 13:34 | NUR ---
NURSE NOTES: Patient with blood tinged urine, Dr Aguilar made aware earlier today. Dr Phillips to follow as urologist, picture of urine sample sent.
--- NOTE | 2020-05-15 13:44 | General Progress Note ---
Advance Care Planning Advance Care Planning Advance Care Planning [facility] An independent Hospitalist group, where every patient is our [facility] Internal Medicine Hospitalist Advanced Care Planning Note Please contact us at Date of Discussion: A [id number] discussion with the patient regarding the patient's advanced care planning took place during this hospitalization on the above date. The discussion included the explanation and discussion of advance directives and associated forms/documents, as well as the patient's current code status. We also discussed at length the patient's medical conditions (both acute and chroni c), general prognosis, treatment options, and goals of care. The following summarizes the discussion: Advance Care Planning/Goals of Care: - Will attempt to fill out an AD and/or POLST with the patient prior to discharge, if not already completed - Continue current evaluation and management of any acute and chronic medical issues - Will continue to support the patient/family - Will continue to discuss both short- and long-term goals of care DPOA-HC/Surrogate Decision Maker: None currently appointed Code Status: Full Code Advanced Care Planning Forms/Documents Completed: Deferred until later encounter/visit A total of 25 minutes was spent on this discussion, including counseling, answering questions, and completing, if any, pertinent advanced care planning forms/documents. Time of note may not reflect time of encounter. Prasanna Aguilar D.O May 15, 2020 13:44
--- NOTE | 2020-05-15 15:50 | Cardiology Report ---
APPROVED REPORT EXAM: Two-dimensional and M-mode echocardiogram with Doppler and color Doppler. INDICATION Chest Pain M-Mode DIMENSIONS IVSd1.7 (0.7-1.1cm)Left Atrium (MM)4.2 (1.6-4.0cm) LVDd3.9 (3.5-5.6cm)Aortic Root3.0 (2.0-3.7cm) PWd0.9 (0.7-1.1cm)Aortic Cusp Exc.1.5 (1.5-2.0cm) IVSs2.3 cmEPSS0.6 (>1.0cm) LVDs2.2 (2.5-4.0cm) PWs1.6 cm <Conclusion> Normal left ventricular chamber size, systolic function and wall motion. Left ventricular ejection fraction estimated to be 65-70 %. Moderate left ventricular hypertrophy. No evidence of pericardial effusion. All other cardiac chambers are within normal limits. Moderate focal aortic valve sclerosis with borderline cusp excursion. Thickened mitral valve leaflets with normal excursion. Mitral annulus and aortic root calcification. Pulmonic valve not well visualized. Normal tricuspid valve structure. IVC at normal size with physiologic collapse. A color flow and spectral Doppler study was performed and revealed: Mild aortic regurgitation. Peak aortic valve gradient of 7 mmHg and a mean of 4 mmHg. Mild mitral regurgitation. Mitral diastolic velocities suggest reduced left ventricular relaxation c/w mild LV diastolic dysfunction (Grade I ). Trace tricuspid regurgitation. Tricuspid systolic velocities suggests peak right ventricular systolic pressure of 10 mmHg. No pulmonic regurgitation present.
--- NOTE | 2020-05-15 15:53 | Cardiology Report ---
APPROVED REPORT EKG Measurement Heart [id number] <Conclusion> Normal sinus rhythm Inferior infarct, age undetermined ST & T wave abnormality, consider lateral ischemia Abnormal ECG
--- NOTE | 2020-05-15 15:55 | Cardiology Report ---
APPROVED REPORT EKG Measurement Heart [id number] <Conclusion> Sinus tachycardia Left ventricular hypertrophy with repolarization abnormality Inferior infarct, age undetermined Abnormal ECG
[2020-05-15 16:00] VITALS: BP 108/67
--- NOTE | 2020-05-15 18:29 | NUR ---
CASE MANAGEMENT: REVIEW 69 YEAR OLD MALE PRESENTED TO ED FROM HOME CC: CHEST PAIN SI: ACS T 98.4 HR 120 RR 16 BP 198/117 SAT 99% ROOM AIR TROP I 0.965 IS: ASA 325MG PO X1 2D ECHO PATIENT ADMITTED TO TELEMETRY UNIT 05/14/2020 DCP: PATIENT IS FROM HOME
--- NOTE | 2020-05-15 19:55 | NUR ---
NURSE HAND-OFF REPORT: Important Events on Shift:blood-tinged urine, Dr Phillips following Patient Status: alert, pleasant Diet: cardiac Pending Orders: Pending Results/Labs: Pending MD notification: Latest Vital Signs: Temperature 98.0 , Pulse 82 , B/P 108 /67 , Respiratory Rate 20 , O2 SAT 96 , Room Air, O2 Flow Rate . Vital Sign Comment: EKG Rhythm: Sinus Rhythm Rhythm change?: N MD Notified?: - MD Response: Latest Banks Fall Score: 30 Fall Risk: Medium Risk Safety Measures: Call light Within Reach, Bed Alarm Zone 1, Side Rails Side Rails x3, Bed position Low and Locked. Fall Precautions: Yellow Socks Yellow Gown Door Sign Patient Fall Education Report given to Brittany LOPEZ.
[2020-05-15 20:00] VITALS: BP 113/67
[2020-05-15] MEDS ORDERED: Tamsulosin 0.4mg cap ORAL SCH (21:00)
[2020-05-15] MEDS: TraZODone HCl 25 mg tablet ORAL PRN (21:28)
[2020-05-15] MEDS: Doxycycline Monohydrate 100mg ORAL SCH (21:28)
--- NOTE | 2020-05-15 21:45 | Consultation ---
DATE OF CONSULTATION: 05/15/2020 CONSULTING PHYSICIAN: Bonilla Phillips MD REFERRING PHYSICIAN: Prasanna Aguilar DO REASON FOR CONSULTATION: Evaluation of hematuria. HISTORY OF PRESENT ILLNESS: This is a pleasant 69-year-old [place] male who was admitted to the hospital because of chest pain. He was noted to have gross hematuria. Urology evaluation has been requested. The patient does not speak Montenegrin well. Most of the history was obtained from the chart. Apparently, he has a history of BPH. He is on Flomax as an outpatient. There is no report of any significant flank pain. He does have some urinary frequency. PAST MEDICAL HISTORY: Significant for hypertension, history of CVA, hyperlipidemia. PAST SURGICAL HISTORY: Unknown. MEDICATIONS: Current medication list in the hospital was reviewed. He is currently on Imdur, Norvasc, Lipitor, subcu heparin, Lopressor, benazepril, clonidine. ALLERGIES: No known drug allergies. SOCIAL HISTORY: Apparently has a remote history of smoking. REVIEW OF SYSTEMS: As above. Count was correct. FAMILY HISTORY: Noncontributory. VITAL SIGNS: Temperature is 98, blood pressure is 108/67, pulse is 82, respirations 20. Urine is blood tinged. Apparently, it has been slowly clearing. LABORATORY DATA: UA shows 20-30 RBCs. White count is 8.4, hemoglobin 14.8, and platelets of 193. BUN is 14, creatinine 1.0. His PT is 11.3 with an INR of 1.0. PTT is 30. UA again showed 20-30 RBCs, otherwise negative. DIAGNOSTIC IMAGING STUDIES: The patient had a chest x-ray and an echocardiogram, which was reviewed. There are no renal imaging studies. IMPRESSION: 1. Gross hematuria. 2. Mild lower urinary tract symptoms. 3. BPH history. 4. Possible neurogenic bladder. 5. Possible prostatitis. PLAN AND DISCUSSION: Again, the patient does have mild gross hematuria, which is slowly improving. There is no active bleeding. His H and H is stable. He can be continued to be monitored clinically. He is on subcu heparin, which can be continued at this time, and his urine continues to clear. He can have 1 anticoagulation if needed. At this time, I will add finasteride empirically. He will also resume his Flomax, which he takes as an outpatient. We will also add empiric antibiotics in case there is an underlying chronic prostatitis. A renal ultrasound will also be ordered and he can have cystoscopy at some point as an outpatient electively. Any further recommendations will be forthcoming. Thank you for this consultation. Bonilla Phillips M.D. DR: EL JOB#: [id number] CC:
--- NOTE | 2020-05-15 22:17 | NUR ---
NURSE NOTES: Received patient from JOHN Wilson. Patient shows no signs of pain or distress. Patient is AO x3 able to make needs known. Patient is on room air with no signs of respiratory distress or SOB. IV is intact and patent. There are no signs of erythema, infiltration, or bleeding. Bed is in the lowest position, call light is within reach, side rails up x3.
[2020-05-16] VITALS: BP 126/76
[2020-05-16 04:00] VITALS: BP 131/77
--- NOTE | 2020-05-16 07:36 | NUR ---
NURSE HAND-OFF REPORT: Important Events on Shift:[Small blood clots in urine] Patient Status: [Full code] Diet: [cardiac] Pending Orders: [] Pending Results/Labs:[] Pending MD notification:[] Latest Vital Signs: Temperature 95.9 , Pulse 79 , B/P 131 /77 , Respiratory Rate 20 , O2 SAT 97 , Room Air, O2 Flow Rate . Vital Sign Comment: [] EKG Rhythm: Sinus Rhythm Rhythm change?: N MD Notified?: - MD Response: Latest Banks Fall Score: 30 Fall Risk: Medium Risk Safety Measures: Call light Within Reach, Bed Alarm Zone 1, Side Rails Side Rails x3, Bed position Low and Locked. Fall Precautions: Yellow Socks Yellow Gown Door Sign Patient Fall Education Report given to [JOHN Pierre].
--- NOTE | 2020-05-16 07:40 | NUR ---
NURSE NOTES: Received report from Brittany/RN, Observed patient sitting, eating breakfast in bed. Able to make needs known, mostly Latvian speaking. On room air, no acute distress noted. Urinal at bed side. Bed in low position and locked, Call light within reach, Encouraged to use call light when needed. Will Continue plan of care.
[2020-05-16 07:48] LABS: BASOPHILS % (AUTO) 0.6 % (0.0-2.0); EOSINOPHILS % (AUTO) 1.3 % (0.0-3.0); HEMATOCRIT 43.6 % (42.0-52.0); HEMOGLOBIN 14.5 G/DL (14.2-18.0); LYMPHOCYTES % (AUTO) 17.3 % (20.0-45.0); MEAN CORPUSCULAR VOLUME 93 FL (80-99); MONOCYTES % (AUTO) 8.5 % (1.0-10.0); NEUTROPHILS % (AUTO) 72.2 % (45.0-75.0); PLATELET COUNT 188 K/UL (150-450); RED CELL DISTRIBUTION WIDTH 11.9 % (11.6-14.8); WHITE BLOOD COUNT 9.4 K/UL (4.8-10.8)
--- NOTE | 2020-05-16 07:58 | Urology Progress Note ---
Assessment/Plan Assessment/Plan: 1. Gross hematuria, improving. 2. Mild lower urinary tract symptoms. 3. BPH history. 4. Possible neurogenic bladder. 5. Possible prostatitis. monitor clinically cont with flomax, proscar, doxycycline f/u on renal u/s f/u on blood cx cysto electively Subjective Allergies: Coded Allergies: No Known Allergies (Unverified , 04/12/20) Subjective feels fair, urine clearing by report Objective Last 24 Hour Vital Signs Date Time Temp Pulse Resp B/P (MAP) Pulse Ox O2 Delivery O2 Flow Rate FiO2 05/16/20 04:00 79 05/16/20 04:00 95.9 81 20 131/77 (95) 97 05/16/20 00:00 97.5 82 18 126/76 (93) 97 05/16/20 00:00 75 05/15/20 21:29 82 113/67 05/15/20 21:00 Room Air 05/15/20 20:00 97.5 82 20 113/67 (82) 97 05/15/20 20:00 82 05/15/20 16:00 82 05/15/20 16:00 98.0 78 20 108/67 (81) 96 05/15/20 12:00 79 05/15/20 12:00 99.9 79 20 123/79 (94) 100 05/15/20 09:03 133/82 05/15/20 09:02 83 133/82 05/15/20 09:02 83 133/82 05/15/20 09:00 Room Air 05/15/20 08:00 79 05/15/20 08:00 98.8 83 20 133/82 (99) 98 Intake and Output 05/15/20 05/16/20 19:00 07:00 Intake Total 730 ml Output Total 350 ml 300 ml Balance 380 ml -300 ml Intake Oral 730 ml Output Urine Total 350 ml 300 ml Microbiology Date/Time Source Procedure Growth Status 05/14/20 13:28 Blood Blood Culture - Preliminary NO GROWTH AFTER 24 HOURS Resulted Current Medications Medications (Trade) Dose Ordered Sig/Venessa Route PRN Reason Start Time Stop Time Status Last Admin Dose Admin Acetaminophen (Tylenol) 650 mg Q4H PRN ORAL Mild Pain (Pain Scale 1-3) 05/14/20 17:45 06/13/20 17:44 Amlodipine Besylate (Norvasc) 10 mg DAILY ORAL 05/15/20 09:00 06/14/20 08:59 05/15/20 09:02 Atorvastatin Calcium (Lipitor) 80 mg DAILY ORAL 05/15/20 09:00 08/13/20 08:59 05/15/20 09:03 Clonidine HCl (Catapres Tab) 0.1 mg Q4H PRN ORAL sbp>170 05/14/20 16:45 08/12/20 16:44 Dextrose (Dextrose 50%) 25 ml Q30M PRN IV Hypoglycemia 05/14/20 17:45 08/12/20 17:44 Dextrose (Dextrose 50%) 50 ml Q30M PRN IV Hypoglycemia 05/14/20 17:45 08/12/20 17:44 Doxycycline Monohydrate (Doxycycline Monohydrate) 100 mg EVERY 12 HOURS ORAL 05/15/20 21:00 05/22/20 20:59 05/15/20 21:28 Finasteride (Proscar) 5 mg DAILY ORAL 05/16/20 09:00 08/14/20 08:59 Heparin Sodium (Porcine) (Heparin 5000 units/ml) 5,000 units EVERY 12 HOURS SUBQ 05/14/20 21:00 06/28/20 20:59 05/15/20 21:30 Isosorbide Mononitrate (Imdur) 30 mg DAILY ORAL 05/15/20 09:00 06/14/20 08:59 05/15/20 09:03 Metoprolol Tartrate (Lopressor) 50 mg Q12HR ORAL 05/14/20 21:00 08/12/20 20:59 05/15/20 21:29 Tamsulosin HCl (Flomax) 0.4 mg BEDTIME ORAL 05/15/20 21:00 06/14/20 20:59 05/15/20 21:28 Trazodone HCl (Desyrel) 25 mg BEDTIME PRN ORAL Insomnia 05/14/20 19:45 06/13/20 19:44 05/15/20 21:28 Laboratory Tests 05/15/20 14:10: Prothrombin Time 11.3, Prothromb Time International Ratio 1.0, Activated Partial Thromboplast Time 30 05/16/20 06:25: White Blood Count 9.4, Red Blood Count 4.70, Hemoglobin 14.5, Hematocrit 43.6, Mean Corpuscular Volume 93, Mean Corpuscular Hemoglobin 30.9, Mean Corpuscular Hemoglobin Concent 33.2, Red Cell Distribution Width 11.9, Platelet Count 188, Mean Platelet Volume 7.3, Neutrophils (%) (Auto) 72.2, Lymphocytes (%) (Auto) 17.3L, Monocytes (%) (Auto) 8.5, Eosinophils (%) (Auto) 1.3, Basophils (%) (Auto) 0.6, Sodium Level [Pending], Potassium Level [Pending], Chloride Level [Pending], Carbon Dioxide Level [Pending], Blood Urea Nitrogen [Pending], Creatinine [Pending], Estimat Glomerular Filtration Rate [Pending], Glucose Level [Pending], Calcium Level [Pending], Magnesium Level [Pending] Height (Feet): 5 Height (Inches): 3.00 Weight (Pounds): 122 Objective exam stable Bonilla Phillips MD May 16, 2020 07:58
[2020-05-16 08:00] VITALS: BP 131/67
[2020-05-16 08:11] LABS: ANION GAP 8 mmol/L (5-15); BLOOD UREA NITROGEN 15 mg/dL (7-18); CALCIUM 8.1 MG/DL (8.5-10.1); CARBON DIOXIDE 24 MMOL/L (21-32); CHLORIDE 106 MMOL/L (98-107); SODIUM 138 MMOL/L (136-145)
--- NOTE | 2020-05-16 08:44 | NUR ---
CASE MANAGEMENT:REVIEW 05/16/20 SI: NSTEMI EXTENSIVE CARDIAC HISTORY 97.9 86 20 131/67 97% ON RA CA-8.1 IS: DOXYCYCLINE PO Q12 FLOMAX PO QHS IMDUR PO QD NORVASC PO QD HEPARIN SQ Q12 LOPRESSOR PO Q12 : TELEMETRY STATUS DCP: FROM HOME
[2020-05-16] MEDS: Atorvastatin 80mg tab ORAL SCH (08:46)
[2020-05-16] MEDS: Imdur 30mg tab ORAL SCH (08:46)
[2020-05-16] MEDS: Metoprolol Tartrate 50mg tab ORAL SCH (08:47)
[2020-05-16] MEDS: Doxycycline Monohydrate 100mg ORAL SCH (08:47)
[2020-05-16] MEDS: Heparin 5000 units/ml inj SUBQ SCH (08:50)
--- NOTE | 2020-05-16 09:34 | General Progress Note ---
Subjective Constitutional: Denies: no symptoms, chills, diaphoresis, fever, malaise, weakness, other HEENT: Denies: no symptoms, eye pain, blurred vision, tearing, double vision, ear pain, ear discharge, nose pain, nose congestion, throat pain, throat swelling, mouth pain, mouth swelling, other Cardiovascular: Denies: no symptoms, chest pain, edema, irregular heart rate, lightheadedness, palpitations, syncope, other Respiratory: Denies: no symptoms, cough, orthopnea, shortness of breath, SOB with excertion, SOB at rest, sputum, stridor, wheezing, other Gastrointestinal/Abdominal: Denies: no symptoms, abdomen distended, abdominal pain, black stools, tarry stools, blood in stool, constipated, diarrhea, difficulty swallowing, nausea, poor appetite, poor fluid intake, rectal bleeding, vomiting, other Genitourinary: Reports: hematuria; Denies: no symptoms, burning, discharge, frequency, flank pain, incontinence, pain, urgency, other Neurologic/Psychiatric: Denies: no symptoms, anxiety, depressed, emotional problems, headache, numbness, paresthesia, pre-existing deficit, seizure, ti ngling, tremors, weakness, other Endocrine: Denies: no symptoms, excessive sweating, flushing, intolerance to cold, intolerance to heat, increased hunger, increased thirst, increased urine, unexplained weight gain, unexplained weight loss, other Hematologic/Lymphatic: Denies: no symptoms, anemia, easy bleeding, easy bruising, other Allergies: Coded Allergies: No Known Allergies (Unverified , 04/12/20) Subjective Overnight per nurse patient to have blood clot. No acute events overnight. Patient resting comfortably in bed. No chest pain, shortness of breath. Still does not want discuss about his heart at all. He is only concerned about his hematuria. Objective Last 24 Hour Vital Signs Date Time Temp Pulse Resp B/P (MAP) Pulse Ox O2 Delivery O2 Flow Rate FiO2 05/16/20 08:47 86 05/16/20 08:46 05/16/20 08:43 86 05/16/20 08:00 97.9 86 20 / (88) 97 05/16/20 04:00 79 05/16/20 04:00 95.9 81 20 131/ (95) 97 05/16/20 00:00 97.5 82 18 126/76 (93) 97 05/16/20 00:00 75 05/15/20 21:29 82 113/67 05/15/20 21:00 Room Air 05/15/20 20:00 97.5 82 20 113/67 (82) 97 05/15/20 20:00 82 05/15/20 16:00 82 05/15/20 16:00 98.0 78 20 108/67 (81) 96 05/15/20 12:00 79 05/15/20 12:00 99.9 79 20 123/79 (94) 100 Intake and Output 05/15/20 05/16/20 19:00 07:00 Intake Total 730 ml Output Total 350 ml 300 ml Balance 380 ml -300 ml Intake Oral 730 ml Output Urine Total 350 ml 300 ml Laboratory Tests 05/15/20 14:10: Prothrombin Time 11.3, Prothromb Time International Ratio 1.0, Activated Partial Thromboplast Time 30 05/16/20 06:25: White Blood Count 9.4, Red Blood Count 4.70, Hemoglobin 14.5, Hematocrit 43.6, Mean Corpuscular Volume 93, Mean Corpuscular Hemoglobin 30.9, Mean Corpuscular Hemoglobin Concent 33.2, Red Cell Distribution Width 11.9, Platelet Count 188, Mean Platelet Volume 7.3, Neutrophils (%) (Auto) 72.2, Lymphocytes (%) (Auto) 17.3L, Monocytes (%) (Auto) 8.5, Eosinophils (%) (Auto) 1.3, Basophils (%) (Auto) 0.6, Sodium Level 138, Potassium Level 4.0, Chloride Level 106, Carbon Dioxide Level 24, Anion Gap 8, Blood Urea Nitrogen 15, Creatinine 1.0, Estimat Glomerular Filtration Rate > 60, Glucose Level 104, Calcium Level 8.1L, Magnesium Level 2.2 Height (Feet): 5 Height (Inches): 3.00 Weight (Pounds): 122 General Appearance: no apparent distress, alert, alert oriented x3 EENT: PERRL/EOMI Neck: non-tender, normal alignment Cardiovascular: normal rate, regular rhythm, no JVD Respiratory/Chest: lungs clear, normal breath sounds, respiratory distress Abdomen: non tender, soft, no organomegaly Extremities: normal range of motion, non-tender Edema: no edema noted Arm (L), no edema noted Arm (R), no edema noted Leg (L), no edema noted Leg (R), no edema noted Pedal (L), no edema noted Pedal (R), no edema noted 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 Matthews 69-year-old Norwegian male with past medical history of multivessel CAD, NSTEMI, hypertension, CVA with residual right-sided weakness and hyperlipidemia, presents to the ER chest pain. # NSTEMI likely type I # Gross hematuria # ?BPH # Coronary artery disease multivessel # Essential hypertension # Hyperlipidemia # History of CVA P: Hemodynamically stable, no respiratory compromise Recent history of PCI per cardiology which showed three-vessel CAD, PCI not i ndicated and CABG was recommended however patient had refused at the time. I had extensive discussion today regarding patient's cardiac disease and treatment options. Patient still refuses further invasive interventions at this time. He is more concerned about his hematuria. He says he does not want any surgeries however he would like to discuss about the heart again after his hematuria has resolved. Per urology, cystoscopy is elective outpatient, will continue tamsulosin and add finasteride and treat for presumed chronic prostatitis with doxycycline We will continue metoprolol 50 mg daily, Imdur, aspirin, statin Echo: No regional wall motion abnormalities, EF 55 to 60%, no valvular dysfunction, normal elevation of RSVP H&H stable Okay for chemical DVT prophylaxis - cardiology consult Dr. Sanchez, recs appreciated Consult urology , recs appreciated Diet: cardiac DVT ppx: Heparin 5000 twice daily GI: none Code status: Full Dispo: Having continued discussion with patient regarding cardiac issues however he is unwilling to discuss any further treatment options for his severe CAD, pending clearance from cardiology as to when to for discharge Time spent on this encounter was 49 minutes which included 31 minutes of counseling and care coordination. I discussed with the nurse at bedside. Time of note may not reflect time patient was seen. Prasanna Aguilar D.O May 16, 2020 09:34
--- NOTE | 2020-05-16 10:37 | Cardiac Electrophysiology PN ---
Assessment/Plan Assessment/Plan 1. Chest pain. The patient has 3-vessel coronary artery disease, confirmed by cardiac catheterization by me at [facility] on April 16, 2020 less than a month ago. That showed severe 3-vessel disease of proximal LAD and proximal circumflex at the bifurcation of obtuse marginal and proximal distal right coronary artery as well as proximal ramus intermedius branch. The patient is not a candidate for percutaneous intervention. However, he would benefit from coronary artery bypass graft per evaluation by Dr. Person. However, at that time, the patient refused. Continue aspirin 81 mg daily, Lipitor 80 mg daily, and metoprolol 50 mg b.i.d. and Imdur 30 daily. Echo EF 55% 2. Hypertension. Continue metoprolol 50 mg bid, amlodipine 10 mg daily, Imdur 30 daily as well as p.r.n. clonidine. 3. History of CVA with right hemiplegia. 4. Hyperlipidemia. AZAM RN Subjective Subjective Well known to me as I transferred him last month from [place] [facility] and underwent cardiac cath by me on 04/16 showed critical 3Vd. Not a PCI candidate per Dr Chávez but benefits from CABG per Dr. Person He refused CABG then . No CP today. Still wants medical therapy Objective Last 24 Hour Vital Signs Date Time Temp Pulse Resp B/P (MAP) Pulse Ox O2 Delivery O2 Flow Rate FiO2 05/16/20 08:47 86 131/67 05/16/20 08:46 131/67 05/16/20 08:43 86 131/67 05/16/20 08:00 84 05/16/20 08:00 97.9 86 20 131/67 (88) 97 05/16/20 04:00 79 05/16/20 04:00 95.9 81 20 131/77 (95) 97 05/16/20 00:00 97.5 82 18 126/76 (93) 97 05/16/20 00:00 75 05/15/20 21:29 82 113/67 05/15/20 21:00 Room Air 05/15/20 20:00 97.5 82 20 113/67 (82) 97 05/15/20 20:00 82 05/15/20 16:00 82 05/15/20 16:00 98.0 78 20 108/67 (81) 96 05/15/20 12:00 79 05/15/20 12:00 99.9 79 20 123/79 (94) 100 Intake and Output 05/15/20 05/16/20 18:59 06:59 Intake Total 730 ml Output Total 350 ml 300 ml Balance 380 ml -300 ml Intake Oral 730 ml Output Urine Total 350 ml 300 ml Laboratory Tests Test 05/15/20 14:10 05/16/20 06:25 Prothrombin Time 11.3 SEC (9.30-11.50) Prothromb Time International Ratio 1.0 (0.9-1.1) Activated Partial Thromboplast Time 30 SEC (23-33) White Blood Count 9.4 K/UL (4.8-10.8) Red Blood Count 4.70 M/UL (4.70-6.10) Hemoglobin 14.5 G/DL (14.2-18.0) Hematocrit 43.6 % (42.0-52.0) Mean Corpuscular Volume 93 FL (80-99) Mean Corpuscular Hemoglobin 30.9 PG (27.0-31.0) Mean Corpuscular Hemoglobin Concent 33.2 G/DL (32.0-36.0) Red Cell Distribution Width 11.9 % (11.6-14.8) Platelet Count 188 K/UL (150-450) Mean Platelet Volume 7.3 FL (6.5-10.1) Neutrophils (%) (Auto) 72.2 % (45.0-75.0) Lymphocytes (%) (Auto) 17.3 % (20.0-45.0) L Monocytes (%) (Auto) 8.5 % (1.0-10.0) Eosinophils (%) (Auto) 1.3 % (0.0-3.0) Basophils (%) (Auto) 0.6 % (0.0-2.0) Sodium Level 138 MMOL/L (136-145) Potassium Level 4.0 MMOL/L (3.5-5.1) Chloride Level 106 MMOL/L (98-107) Carbon Dioxide Level 24 MMOL/L (21-32) Anion Gap 8 mmol/L (5-15) Blood Urea Nitrogen 15 mg/dL (7-18) Creatinine 1.0 MG/DL (0.55-1.30) Estimat Glomerular Filtration Rate > 60 mL/min (>60) Glucose Level 104 MG/DL (74-106) Calcium Level 8.1 MG/DL (8.5-10.1) L Magnesium Level 2.2 MG/DL (1.8-2.4) Microbiology Date/Time Source Procedure Growth Status 05/14/20 13:28 Blood Blood Culture - Preliminary NO GROWTH AFTER 24 HOURS Resulted 05/14/20 13:13 Blood Blood Culture - Preliminary NO GROWTH AFTER 24 HOURS Resulted Objective HEAD AND NECK: No JVD. LUNGS: Decreased breath sounds. CARDIOVASCULAR: Regular S1 and S2 with no gallop. ABDOMEN: Soft. EXTREMITIES: No pitting edema. He has right hemiplegia. Tyler Sanchez MD May 16, 2020 10:37
[2020-05-16 12:00] VITALS: BP 100/63
[2020-05-16] MEDS ORDERED: DOXYCYCLINE MO100 MG ORAL (12:43)
[2020-05-16] MEDS ORDERED: FINASTERIDE5 MG ORAL (12:43)
--- NOTE | 2020-05-16 12:44 | Discharge Instructions ---
Discharge Instructions Discharge Instructions Diet: cardiac 2 GM Na, low fat Activity: light activity Follow Up Orders Follow-up with primary care physician in 1 to 2 weeks, follow-up with cardiology in 1 to 2 weeks For Congestive Heart Failure Reminder Report to your physician any weight gain of 5 pounds or more in one week. Prasanna Aguilar D.O May 16, 2020 12:44
--- NOTE | 2020-05-16 12:56 | Discharge Summary ---
Discharge Summary Hospital Course Date of Admission May 14, 2020 at 13:42 Date of Discharge Admitting Diagnosis ACS HPI Delmar Summers is a 69 year old male who was admitted on May 14, 2020 at 13:42 for Acute Coronary Syndrome Hospital Course Mr. 69-year-old Irish male with past medical history of multivessel CAD, NSTEMI, hypertension, CVA with residual right-sided weakness and hyperlipidemia, presents to the ER chest pain. Patient has known history of coronary artery disease as he recently was hospitalized at [facility] for chest pain, in which cardiac angiogram was completed and showed that he had three-vessel occlusion. Cardiology at the time deemed PCI was not warranted and advised for CABG, however patient refused all medical management and left without treatment. During this admission patient Troponin increased from 0.03 to 0.9. Patient's chest pain subsided with Imdur and nitro. Patient was evaluated by cardiology Dr. Casas who performed the angiography at [facility] and recommended CABG once again. However after further discussion with the Patient on multiple occasions he has insisted that he would not have any invasive heart interventions as he believes his heart is fine. 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 He was also noted to have gross hematuria which he has been complaining about for the past week. UA positive for RBCs and blood, negative for UTI. Patient was then evaluated by urology and deemed stable for discharge as his urine cleared up within 24 hours. He recommended outpatient cystoscopy along with completion of doxycycline for possible chronic prostatitis. Patient otherwise remained hemodynamically stable. He has been cleared by cardiology for discharge. He is medically stable for safe discharge. I personally discussed with the patient and her confirmation that he will follow-up with his primary care 1 to 2 weeks along with the dust mixer that his PCP had consulted him to see. # NSTEMI likely type I # Gross hematuria # ?BPH # Coronary artery disease multivessel # Essential hypertension # Hyperlipidemia # History of CVA P: Follow-up with primary care physician in 1 to 2 weeks, will need urology refer ral for outpatient cystoscopy Follow-up with cardiology in 1 to 2 weeks Continue beta-mayda, ELEN, aspirin, statin, amlodipine Per urology, cystoscopy is elective outpatient, will continue tamsulosin and add finasteride and treat for presumed chronic prostatitis with doxycycline Echo: No regional wall motion abnormalities, EF 55 to 60%, no valvular dysfunction, normal elevation of RSVP Time spent on this encounter was 41 minutes which included 31 minutes of counseling and care coordination. I discussed with the nurse at bedside. Time of note may not reflect time patient was seen. Discharge Discharge Vital Signs Last Vital Signs Date Time Temp Pulse Resp B/P (MAP) Pulse Ox O2 Delivery O2 Flow Rate FiO2 05/16/20 12:00 97.9 78 20 100/63 (75) 96 05/16/20 09:00 Room Air Discharge Disposition Patient was discharged to Discharge Instructions Discharge Instructions Activity: light activity Prasanna Aguilar D.O May 16, 2020 12:56
--- NOTE | 2020-05-16 15:37 | NUR ---
NURSE NOTES: Discharge instruction given, Patient verbalized understanding. 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 Belonging check list done and signed. Discharge Package given, Patient is in stable condition. Patient escorted down stairs, and left via taxi.
--- NOTE | 2020-05-18 20:04 | Diagnostic Imaging Report ---
EXAM: US Retroperitoneal Limited, Renal CLINICAL HISTORY: FLANK TECHNIQUE: Real-time limited ultrasound of the retroperitoneum with image documentation. COMPARISON: No relevant prior studies available. FINDINGS: Right kidney: The right kidney measures 10.8 cm in craniocaudal dimension and the left kidney measures 10.7 cm in craniocaudal dimension. No stones. No hydronephrosis. Left kidney: See above. Other findings: The prostate is enlarged. IMPRESSION: No acute findings in the retroperitoneum. No hydronephrosis.
== END 2020-05-16 15:37 | disposition home or self-care (01) | DRG 281 ==
LOC: EDBD 12:15 → EMR 13:35 → 2E 13:42 → EDBEDREQ 16:40
DX: I21.4 Non-ST elevation (NSTEMI) myocardial infarction (principal); I69.351 Hemiplegia and hemiparesis following cerebral infarction affecting right dominant side; I10 Essential (primary) hypertension; Z87.891 Personal history of nicotine dependence; I25.10 Atherosclerotic heart disease of native coronary artery without angina pectoris; E78.5 Hyperlipidemia, unspecified; N40.1 Benign prostatic hyperplasia with lower urinary tract symptoms; R31.0 Gross hematuria
CPT/HCPCS: 36415; 71045; 76770; 80048; 80053; 81003; 82550; 83605; 83735; 84484; 85025; 85610; 85730; 87040; 93005; 93306; 99285